=== PATIENT | male | born 1970 | race Caucasian/White ===

== ENCOUNTER → 2017-12-29 07:57 | Outpatient (CLI) | payer OTHER, SELFPAY ==
--- NOTE | 2017-12-29 | ASPOS_PTH ---
PATIENT: SARAH BETH YAÑEZ Jr. LOC: [facility] U#:[id number] AGE/SX: 54/M ROOM: RE12/29/[address]: Dr. Dakota Morelos MD : 1970 BED: DIS: SPEC #: [id number] RECD: 12/29/17 13:26 STATUS: MOHAN MARCIO #: [id number] JESUS MANUEL: 12/29/17 00:[address]: Dakota Morelos DEPT: CYTOLOGY RECD BY: Keon Pop ENTERED: 12/29/17 13:27 SP TYPE: ASP HERE OTHR DR: Dr. Ronald Jean Baptiste III, MD Tissues: Parotid gland, NOS Procedures: Pap Stain (control) Surgery Specimen Level IV Diff Quik Stain (control) Cell Block Cytology Other Fine Needle Asp on Site HEADER OPERATION: FNA right parotid mass PRE-OP DIAGNOSIS: Right parotid mass TISSUE SUBMITTED: FNA right parotid mass DIAGNOSIS CYTOLOGY Right parotid mass, FNA (smears and cell block): Pleomorphic adenoma. SJ:lavon 12/30/17 COMMENT The specimen is evaluated at the time of right parotid mass FNA by Dr. Mclaughlin. Immediate Evaluation = Pleomorphic adenoma. Clinical correlation and appropriate follow up are necessary. CYTOLOGY STUDY Slides are reviewed. CYTOLOGY GROSS Received is 0.2 ml of arellano fluid labeled with the patient's name, and designated right parotid mass. Two imprints and two paps are made from the submitted fluid and the rest is added to [employer]to[employer] for cell block preparation. Submitted for cytology study. / AM:lavon 12/29/17 TC:1 CPT: 45908, 12334, 10219, 99566
--- OUTSIDE RECORDS SUMMARY | 2017-12-29 08:27 | XMS RPT_ITS ---
:1970 Author Organization OH[facility] Care Team Providers Name Role Phone Cleveland Morelos Attending Unavailable Cleveland Morelos Referring Unavailable Cebul III, Ronald Primary Care Unavailable CEBUL III, RONALD A Attending Unavailable CEBUL III, RONALD Trujillo Referring Unavailable CEBUL III, RONALD Trujillo Attending Unavailable CEBUL III, RONALD Trujillo Referring Unavailable LOUANN SANCHEZ (TETRYL WRINGER OPERATOR) Attending Unavailable LOUANN SANCHEZ (TETRYL WRINGER OPERATOR) Referring Unavailable LOUANN SANCHEZ (TETRYL WRINGER OPERATOR) Referring Unavailable CEBUL III, RONALD Trujillo Referring Unavailable LOUANN SANCHEZ (TETRYL WRINGER OPERATOR) Attending Unavailable LOUANN SANCHEZ (TETRYL WRINGER OPERATOR) Referring Unavailable LOUANN SANCHEZ (TETRYL WRINGER OPERATOR) Referring Unavailable PROBLEMS PROBLEMS DATE TYPE CONDITION / CODE ATTENDING STATUS SOURCE 12/18/2017 Active Localized swelling, NA Active [facility] mass and lump, neck [place] / R22.1(ICD-10) Repository 12/01/2017 Active Encounter for Active [facility] screening for [place] infections with a Repository predominantly sexual mode of transmission / Z11.3(ICD-10) 08/19/2017 Active Other fatigue / NA Active [facility] R53.83(ICD-10) [place] Repository 04/29/2016 Active Hyperlipidemia, NA Active [facility] unspecified / [place] E78.5(ICD-10) Repository 10/10/2009 Active Essential (primary) NA Active [facility] hypertension / [place] I10(ICD-10) Repository 06/06/2017 Active Other long-term NA Active [facility] (current) drug [place] therapy / Repository Z79.899(ICD-10) PROCEDURES PROCEDURES No Procedure Records FoundRESULTS RESULTS PROGRESS Observed: 12/18/2017 Status: COMPLETED Source: [place] 4:05 PM [facility] REPOSITORY HNO ID: [id number]: Verenice Nuñez CtService: (none)Author Type: (none)Type: Progress NotesFiled: 12/18/2017 4:05 PMNote Text: Radiology Service Progress NotePATIENT NAME: Vinh Yañez JRMRN: [id number] OF SERVICE: December 18, 2017TIME: 4:05 PMPATIENT IDENTITY VERIFICATION COMPLETED USING TWO (2) METHODS: Patientconfirmed name verbally and Date of .PATIENT GENDER DATA: MalePATIENT RELEVANT IMPLANT DATA REVIEWED: Not ApplicableCONTRAST INDUCED NEPHROPATHY RISK FACTORS: Not applicableCREATININE:CreatinineDate Value Ref Range Dbprnh6311/29/2017 1.28 (H) 0.73 - 1.22 mg/dL Final08/19/2017 1.24 (H) 0.73 - 1.22 mg/dL Final06/06/2017 1.40 (H) 0.73 - 1.22 mg/dL Final eGFR-All Other RacesDate Value Ref Range Jukfqg9611/29/2017 60 . FinalComment:eGFR (Estimated GFR) Units of measure: mL/min/1.73 meters squaredeGFR is derived from the reexpressed MDRD Study equation using thefollowingparameters: serum creatinine, age, gender and race. The creatinine assayhasbeen calibrated to be traceable to IDMS.An eGFR <60 mL/min/1.73m2 for >3 months is consistent with chronic kidneydisease. Refer to KDOQI guidelines for clinical interpretation.In patients with unstable renal function, e.g. those with acute kidneyinjury,the eGFR may not accurately reflect actual GFR. eGFR- AmericanDate Value Ref Range Txkjhw7311/29/2017 >60 Final P.O.C.T. RESULTS: POC done: Yes, See Lab Tab December 18, 2017RADIOLOGIST NOTIFIED?: NoALLERGIES: Reviewed and unchangedCONTRAST ALLERGY: NO.PERIPHERAL IV ACCESS: Ambulatory: IV type: A peripheral IV was startedin the Left antecubital site with a Angio cath: 22 gauge., Siteassessment: Clean,Dry and Intact, Site disposition DiscontinuedRADIOLOGY DEPARTMENT: CT; Exam(s) Completed: NeckSIGNED BY: Verenice Nuñez CtDecember 18, 2017 4:[address] NECK SOFT TISSUE Observed: 12/18/2017 Status: F Source: [place] IVCON 9:28 AM [facility] REPOSITORY * * *Final Report* * *DATE OF EXAM: Dec 18 2017 9:28AM [facility] 0013 - CT NECK SOFT TISSUE W IVCON / REASON: Localized swelling, mass or lump of neck * * * * Physician Interpretation * * * * CT of the neck with contrast.HISTORY: Localized swelling mass or lump of neckTECHNIQUE: Routine neck with contrast.CT Contrast: Omnipaque 300CT Contrast Volume (ml): 100CT Contrast Route of Administration: IVCT Dose-Length Product (DLP): 815 mGycmCT Dose Reduction Employed: YesRadiation Shielding Employed: N/ACOMPARISON: NoneRESULT:1.4 cm mildly enhancing rounded masses in the tail of the right parotid gland. Differential considerations favor a primary parotid neoplasm over intraparotid adenopathy based on the morphology of the mass. Left parotid gland and submandibular glands are within normal limits. There is no adenopathy.Visible intracranial contents demonstrate remote ischemic changes in the left basal ganglia but otherwise appear to be within normal limits.The orbits, putty glazer spaces, parapharyngeal fat pads, retropharyngeal, and prevertebral soft tissue spaces are otherwise within normal limits. The thyroid gland has a homogeneous appearance. There are no destructive osseous lesions. Moderate spondylosis at C6-7 and C7-T1. 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.THERE IS NO ADENOPATHY.Swimmer: PSCKlaus Transcribe Date/Time: Dec 18 2017 9:46ADictated by : VIKTORIYA CARR MDThis examination was interpreted and the report reviewed and electronically signed by: VIKTORIYA CARR MD on Dec 18 2017 9:48AM [id number] PROGRESS Observed: 12/02/2017 Status: COMPLETED Source: [place] 1:20 PM [facility] REPOSITORY HNO ID: [id number]: Yessy JaquezachSerpipee: (none)Author Type: Medical AssistantType: Progress NotesFiled: 12/02/2017 1:26 PMNote Text:Spoke to Vinh, informed him of the date and time of CT scan.Patient informed and verbalized understanding.Yessy Reed MA PROGRESS Observed: 12/01/2017 Status: COMPLETED Source: [place] 4:24 PM [facility] REPOSITORY HNO ID: [id number]: Cecelia Call PsrService: (none)Author Type: (none)Type: Progress NotesFiled: 12/02/2017 1:17 PMNote Text:Patient is scheduled for 12/15/17 HEPATITIS REMOTE PANEL Collected: 12/01/2017 Status: F Source: [place] 9:06 AM [facility] REPOSITORY TYPE CODE TESTS RESULT OUT OF REFERENCE UNITS RANGE LAB AHBCOT Negative Hep B Core Negative Ab,Total LAB AHCV Negative Hepatitis C Negative Ab IA LAB HBSAGR Negative HBsAg Negative LAB AHBSAG Negative HepB Negative Surface Ab,Qual Result Comment: NEGATIVE Performed By: #### HREMOP, HIV12C, SYPHGX #### [facility] [address] [place], [place] [address] HIV 12 COMBO (AG/AB) Collected: 12/01/2017 Status: F Source: [place] 9:06 AM [facility] REPOSITORY TYPE CODE TESTS RESULT OUT OF REFERENCE UNITS RANGE LAB HVAGAB Non Reactive HIV Non 12 Ag/Ab Reactive Result Comment: (NOTE) HIV Information: [place] Rev. Code 3701.243(E): This information has been disclosed to you from confidential records protected from disclosure by state law. You shall make no further disclosure of this information without the specific, written, and informed release of the individual to whom it pertains, or as otherwise permitted by state law. A general authorization for the release of medical or other information is not sufficient for the purpose of the release of HIV test results or diagnoses. Performed By: #### HREMOP, HIV12C, SYPHGX #### [facility] [address] [place], [place] [address] SYPHILIS IGG WITH Collected: 12/01/2017 Status: F Source: [facility] 9:06 AM [facility] REPOSITORY TYPE CODE TESTS RESULT OUT OF REFERENCE UNITS RANGE LAB SYPHQL Nonreactive Nonreactive Syphilis IgG, Qual Result Comment: No serological evidence of infection with T. pallidum. LAB SYPHLG AI Syphilis IgG <0.2 Result Comment: Antibody index is interpreted as follows: Non reactive SPECIMENS <=0.8 Weak reactive SPECIMENS 0.9 to 5.9 Reactive SPECIMENS >=6.0 Performed By: #### HREMOP, HIV12C, SYPHGX #### [facility] [address] [place], [place] [address] PROGRESS Observed: 12/01/2017 Status: COMPLETED Source: [place] 7:52 AM [facility] REPOSITORY HNO ID: [id number]: Louann Howard (Chief Sales Officer) Ozzy: (none)Author Type: Nurse PractitionerType: Progress NotesFiled: 12/01/2017 8:48 AMNote Text:Chief ComplaintPatient presents with:Mass: patient states has right side of neckHPIPaul Cassandra Yañez JR is a 47 year old male who presents here today forAbove Complaints. F/U htn, lab review and mass on neck.Mass on right side of neck. Was noted at 08/19/17 OV, this was addressed,CT neck soft tissue was scheduled for 08/27/17 and patient no showed forthat. At an outreach telephone encounter, the patient noted mass stillpresent. He was reminded the CT scan previously ordered is still valid andhe agrees to have this done. Will schedule at end of OV today. Reports notpainful, not bothersome, does not feel it has grown any since last OV inJune.HTN: Mr. Yañez indicates that he is feeling well and denies anysymptoms referable to elevated blood pressure. Specifically deniesheadache, chest pain, palpitations, dyspnea and peripheral edema. Patientadmits to having side effects of fatigue. He stopped taking one of thetablets of Prinzide and never started Amlodipine, and no showed f/u apt torecheck BP. Sx of fatigue improved. He does not check BP's generally.Vinh gets minimal exercise. He watches his diet for sodium, low fat andlow cholesterol generally not very much.Last 3 Encounter BP Readings: Date: BP: 12/01/2017 142/112 08/19/2017 150/110 06/21/2017 150/99[Average (from Extended Vitals)[Hyperlipidemia. Mr. Yañez reports doing well on current therapy ofnothing. Admits eats what is available. Lives alone, does own cookingalong with fast food are about equal Denies regular exercise. He admitsroom for improvement.His most recent lipid panels are:Cholesterol, Total (mg/dL)Date Value11/29/2017 4612306/06/2017 214 HDL Cholesterol (mg/dL)Date Value11/29/2017 49006/06/2017 45 LDL Cholesterol (mg/dL)Date Value11/29/2017 5712506/06/2017 153 Triglyceride (mg/dL)Date Value11/29/2017 98006/06/2017 82 Also would like screened for HIV. Denies any sx, specifically weightloss, fever, night sweats. He denies any risks. Would just like to knowmy status.Component Latest Ref Rng AND Units 11/29/2017Glucose 74 - 99 mg/dL 89BUN 9 - 24 mg/dL 19Creatinine 0.73 - 1.22 mg/dL 1.28 (H)Sodium 136 - 144 mmol/L 141Potassium 3.7 - 5.1 mmol/L 4.0Chloride 97 - 105 mmol/L 101CO2 22 - 30 mmol/L 28Anion Gap 9 - 18 mmol/L 12Calcium 8.5 - 10.2 mg/dL 9.2eGFR- >60eGFR-All Other Races . 60Cholesterol, Total <200 mg/dL 253 (H)Triglyceride <150 mg/dL 98HDL Cholesterol >39 mg/dL 49LDL Cholesterol <100 mg/dL 184 (H)Non HDL Cholesterol <130 mg/dL 204 (H)Fasting Time hrs 14VLDL Cholesterol <30 mg/dL 20TC:HDL Ratio <5.10 5.16 (H)LDL:HDL Ratio <2.54 3.76 (H)Past medical history, appointments, medications, allergies reviewed.Previous Medical HistoryPAST MEDICAL HISTORYDiagnosis Date- Essential hypertension, benign 10/10/2009- Generalized anxiety disorder- Inguinal hernia unilateral 07/30/2010Previous Surgical HistoryNo past surgical history on file.Family HistoryFAMILY HISTORYProblem Relation Age of Onset- None Mother- Psychiatry Father chronic anxiety- Diabetes Maternal Grandfather- other (alcoholism) Brother- None Brother- None BrotherPatient AllergiesALLERGIESAllergen Reactions- Bees HivesCurrent MedicationsCurrent Outpatient Prescriptions on File Prior to Visit:lisinopril-hydrochlorothiazide (PRINZIDE,ZESTORETIC) 20-12.5 mg per tabletTake 2 tablets by mouth once daily.MULTIVITAMIN ORAL Take 1 tablet by mouth once daily.DULoxetine (CYMBALTA) 30 mg capsule Take 1 capsule by mouth once daily.sildenafil (VIAGRA) 50 mg tablet Take 1 tablet by mouth as needed.amLODIPine (NORVASC) 5 mg tablet Take 1 tablet by mouth once daily.No current facility-administered medications on file prior to visit.Social HistorySocial History Marital status: Spouse name: Years of education: Number of children:Social History Main Topics Smoking status: Never Smoker Smokeless tobacco: Never Used Alcohol use: Yes Comment: 3 beers per week Drug use: NoReview of SymptomsREVIEW OF SYSTEMSGENERAL: No weight loss, malaise or feversHEENT: Negative for frequent or significant headaches, No changes inhearing or vision, no nose bleeds or other nasal problemsNECK: See HPIRESPIRATORY: Negative for cough, hemoptysis, wheezing, COPD, dyspnea orshortness of breathCARDIOVASCULAR: Negative for chest pain, leg swelling, hypertension, CHFor palpitationsGU: Positive for nocturia >1 1-2 times/night. Mild stream.EXAM:BP 150/100 Pulse 60 Temp 36.6 ?C (97.9 ?F) (Tympanic) Resp 16 Wt 87.5 kg (193 lb) BMI 27.69 kg/m?General Appearance: Well appearing, alert, in no acute distress,well-hydrated, well nourished..Oropharynx: Lips, mucosa, and tongue normal, teeth and gums normal,oropharynx normal.Neck: Supple, no adenopathy; thyroid symmetric, normal size, no bruits,Positive findings: Positive findings: 2 cm mobile, firm mass right lowerjaw line, tonsillar node area, difficult to delineate if 2 separatemasses, unchanged from 08/19/17 examLungs: Lungs clear to auscultation. No wheezing, rhonchi, rales.Heart: RRR without murmur, gallop, or rubs. No ectopy.Abdomen: Normal abdominal exam, Abdomen soft, non-tender. Bowel soundsnormal. No masses, organomegaly.Extremities: No deformities, edema, skin discoloration, clubbing orcyanosis. Good capillary refill. .Health Maintenance ListBP CONTROLLED (<130/80) due on 1986INFLUENZA(1) due on 11/08/2017ANNUAL PCP TEAM CHRONIC DISEASE VISIT due on 08/19/2018DTAP,TDAP,TD(2 - Td) due on 09/15/2019DIABETES SCREEN due on 1LIPID SCREEN due on 3ASSESSMENT/PLAN:1. Essential hypertension, benign - ICD9: 401.1, ICD10: I10 (primarydiagnosis)- poor control- Add amlodipine (Norvasc)- Encouraged dietary sodium restriction/DASH diet- Recommended regular aerobic exercise.- Recommend home blood pressure monitoring, to bring results in on nextvisit- Discussed need and benefit for weight loss.- Recheck in 3 weeks nurse visit, sooner should new symptoms or problemsarise. Then f/u in office in 3 months- Goal of BP <130/80- AMLODIPINE 5 MG TABLET2. Hyperlipidemia LDL goal <130 - ICD9: 272.4, ICD10: E78.5- suboptimal control- Encouraged following a low fat, low cholesterol diet.- Check fasting lipid panel in 12 weeks.- Follow up in 12 weeks.- If remains elevated then plan to start statin. He is given handout onlow cholesterol diet. CVD lifetime risk assessed.3. Neck mass - ICD9: 784.2, ICD10: R22.1Ct soft tissue neck previously ordered, Will re- schedule4. Routine screening for STI (sexually transmitted infection) - ICD9:V74.5, ICD10: Z11.3- Lengthy discussion regarding STI's and screening. He wishes to proceedwith labs today.- HIV 1,2 COMBO (AG/AB)- HEP REMOTE PANEL BL- SYPHILIS IGG WITH CONF5. Generalized anxiety disorder - ICD9: 300.02, ICD10: F41.1- Stable, He did not switch to Cybalta from Effexor. Will keep withEffexor for now, titrate BP meds. If unable to get BP under better controlthen will need to consider Effexor as potential contributing factor. Thepatient indicates understanding of these issues and agrees with the plan.Louann Sanchez MSN CHARGING CAR OPERATOR.SIGNAL INTELLIGENCE/ELECTRONIC WARFARE CNOV Observed: 12/01/2017 Status: COMPLETED Source: [place] 7:40 AM [facility] REPOSITORY Office Visit (FAMPWS) VINH YAÑEZ JR ([id number]) 1970 MDate Time Provider Department12/01/17 7:40 AM LOUANN SANCHEZ (TETRYL WRINGER OPERATOR) FAMPWS During your visit today, we recorded the following information about you: Temperature Pulse Respiration Blood pressure 97.9 degrees 60/minute 16/minute 150/100 Weight 87.5 kgLouann Sanchez, MSN CHARGING CAR OPERATOR.SIGNAL INTELLIGENCE/ELECTRONIC WARFARE 12/01/2017 8:48 AM SignedChief ComplaintPatient presents with:Mass: patient states has right side of neckHPIPatressa Yañez JR is a 47 year old male who presents here today for AboveComplaints. F/U htn, lab review and mass on neck.Mass on right side of neck. Was noted at 08/19/17 OV, this was addressed, CTneck soft tissue was scheduled for 08/27/17 and patient no showed for that. Atan outreach telephone encounter, the patient noted mass still present. He wasreminded the CT scan previously ordered is still valid and he agrees to havethis done. Will schedule at end of OV today. Reports not painful, notbothersome, does not feel it has grown any since last OV in August.HTN: Mr. Yañez indicates that he is feeling well and denies any symptomsreferable to elevated blood pressure. Specifically denies headache, chest pain,palpitations, dyspnea and peripheral edema. Patient admits to having sideeffects of fatigue. He stopped taking one of the tablets of Prinzide and neverstarted Amlodipine, and no showed f/u apt to recheck BP. Sx of fatigueimproved. He does not check BP's generally. Vinh gets minimal exercise. Hewatches his diet for sodium, low fat and low cholesterol generally not verymuch.Last 3 Encounter BP Readings: Date: BP: 12/01/2017 142/112 08/19/2017 150/110 06/21/2017 150/99[Average (from Extended Vitals)[Hyperlipidemia. Mr. Yañez reports doing well on current therapy ofnothing. Admits eats what is available. Lives alone, does own cooking alongwith fast food are about equal Denies regular exercise. He admits room forimprovement.His most recent lipid panels are:Cholesterol, Total (mg/dL)Date Value11/29/2017 1722206/06/2017 214 HDL Cholesterol (mg/dL)Date Value11/29/2017 49006/06/2017 45 LDL Cholesterol (mg/dL)Date Value11/29/2017 8904706/06/2017 153 Triglyceride (mg/dL)Date Value11/29/2017 98006/06/2017 82 Also would like screened for HIV. Denies any sx, specifically weight loss,fever, night sweats. He denies any risks. Would just like to know my status.Component Latest Ref Rng AND Units 11/29/2017Glucose 74 - 99 mg/dL 89BUN 9 - 24 mg/dL 19Creatinine 0.73 - 1.22 mg/dL 1.28 (H)Sodium 136 - 144 mmol/L 141Potassium 3.7 - 5.1 mmol/L 4.0Chloride 97 - 105 mmol/L 101CO2 22 - 30 mmol/L 28Anion Gap 9 - 18 mmol/L 12Calcium 8.5 - 10.2 mg/dL 9.2eGFR- >60eGFR-All Other Races . 60Cholesterol, Total <200 mg/dL 253 (H)Triglyceride <150 mg/dL 98HDL Cholesterol >39 mg/dL 49LDL Cholesterol <100 mg/dL 184 (H)Non HDL Cholesterol <130 mg/dL 204 (H)Fasting Time hrs 14VLDL Cholesterol <30 mg/dL 20TC:HDL Ratio <5.10 5.16 (H)LDL:HDL Ratio <2.54 3.76 (H)Past medical history, appointments, medications, allergies reviewed.Previous Medical HistoryPAST MEDICAL HISTORYDiagnosis Date- Essential hypertension, benign 10/10/2009- Generalized anxiety disorder- Inguinal hernia unilateral 07/30/2010Previous Surgical HistoryNo past surgical history on file.Family HistoryFAMILY HISTORYProblem Relation Age of Onset- None Mother- Psychiatry Father chronic anxiety- Diabetes Maternal Grandfather- other (alcoholism) Brother- None Brother- None BrotherPatient AllergiesALLERGIESAllergen Reactions- Bees HivesCurrent MedicationsCurrent Outpatient Prescriptions on File Prior to Visit:lisinopril-hydrochlorothiazide (PRINZIDE,ZESTORETIC) 20-12.5 mg per tablet Take2 tablets by mouth once daily.MULTIVITAMIN ORAL Take 1 tablet by mouth once daily.DULoxetine (CYMBALTA) 30 mg capsule Take 1 capsule by mouth once daily.sildenafil (VIAGRA) 50 mg tablet Take 1 tablet by mouth as needed.amLODIPine (NORVASC) 5 mg tablet Take 1 tablet by mouth once daily.No current facility-administered medications on file prior to visit.Social HistorySocial History Marital status: Spouse name: Years of education: Number of children:Social History Main Topics Smoking status: Never Smoker Smokeless tobacco: Never Used Alcohol use: Yes Comment: 3 beers per week Drug use: NoReview of SymptomsREVIEW OF SYSTEMSGENERAL: No weight loss, malaise or feversHEENT: Negative for frequent or significant headaches, No changes in hearing orvision, no nose bleeds or other nasal problemsNECK: See HPIRESPIRATORY: Negative for cough, hemoptysis, wheezing, COPD, dyspnea orshortness of breathCARDIOVASCULAR: Negative for chest pain, leg swelling, hypertension, CHF orpalpitationsGU: Positive for nocturia >1 1-2 times/night. Mild stream.EXAM:BP 150/100 Pulse 60 Temp 36.6 ?C (97.9 ?F) (Tympanic) Resp 16 Wt87.5 kg (193 lb) BMI 27.69 kg/m?General Appearance: Well appearing, alert, in no acute distress, well-hydrated,well nourished..Oropharynx: Lips, mucosa, and tongue normal, teeth and gums normal, oropharynxnormal.Neck: Supple, no adenopathy; thyroid symmetric, normal size, no bruits,Positive findings: Positive findings: 2 cm mobile, firm mass right lower jawline, tonsillar node area, difficult to delineate if 2 separate masses,unchanged from 08/19/17 examLungs: Lungs clear to auscultation. No wheezing, rhonchi, rales.Heart: RRR without murmur, gallop, or rubs. No ectopy.Abdomen: Normal abdominal exam, Abdomen soft, non-tender. Bowel sounds normal.No masses, organomegaly.Extremities: No deformities, edema, skin discoloration, clubbing or cyanosis.Good capillary refill. .Health Maintenance ListBP CONTROLLED (<130/80) due on 1986INFLUENZA(1) due on 11/08/2017ANNUAL PCP TEAM CHRONIC DISEASE VISIT due on 08/19/2018DTAP,TDAP,TD(2 - Td) due on 09/15/2019DIABETES SCREEN due on 1LIPID SCREEN due on 3ASSESSMENT/PLAN:1. Essential hypertension, benign - ICD9: 401.1, ICD10: I10 (primary diagnosis)- poor control- Add amlodipine (Norvasc)- Encouraged dietary sodium restriction/DASH diet- Recommended regular aerobic exercise.- Recommend home blood pressure monitoring, to bring results in on next visit- Discussed need and benefit for weight loss.- Recheck in 3 weeks nurse visit, sooner should new symptoms or problemsarise. Then f/u in office in 3 months- Goal of BP <130/80- AMLODIPINE 5 MG TABLET2. Hyperlipidemia LDL goal <130 - ICD9: 272.4, ICD10: E78.5- suboptimal control- Encouraged following a low fat, low cholesterol diet.- Check fasting lipid panel in 12 weeks.- Follow up in 12 weeks.- If remains elevated then plan to start statin. He is given handout on lowcholesterol diet. CVD lifetime risk assessed.3. Neck mass - ICD9: 784.2, ICD10: R22.1Ct soft tissue neck previously ordered, Will re- schedule4. Routine screening for STI (sexually transmitted infection) - ICD9: V74.5,ICD10: Z11.3- Lengthy discussion regarding STI's and screening. He wishes to proceed withlabs today.- HIV 1,2 COMBO (AG/AB)- HEP REMOTE PANEL BL- SYPHILIS IGG WITH CONF5. Generalized anxiety disorder - ICD9: 300.02, ICD10: F41.1- Stable, He did not switch to Cybalta from Effexor. Will keep with Effexor fornow, titrate BP meds. If unable to get BP under better control then will needto consider Effexor as potential contributing factor. The patient indicatesunderstanding of these issues and agrees with the plan.Louann Sanchez, MSN CHARGING CAR OPERATOR.Serg Sanchez, MSN CHARGING CAR OPERATOR.NEVAEH 12/01/2017 8:18 AM Signed1. Begin Amlodipine once a day for BP, Nurse visit in 3 weeks to recheck BP.2. Schedule Ct neckReferring Provider: SELF [200]Allergies As of Date: 12/01/2017 Noted Allergy ReactionBEES 06/06/2017 4 - HivesDate Reviewed: 08/27/2017Reviewed by: Verenice Nuñez Ct - Fully AssessedReason for Visit: Mass [64] Cmt: patient states has right side of neckPrimary Visit Diagnosis:Essential hypertension, benign [I10] Other Visit Diagnoses:Hyperlipidemia LDL goal <130 [E78.5] Neck mass [R22.1] Routine screening for STI (sexually transmitted infection) [Z11.3] Generalized anxiety disorder [F41.1]Order(s):amLODIPine (NORVASC) 5 mg tabletTake 1 tablet by mouth once daily.Disp: 30 tabletRfl: 11 lisinopril-hydrochlorothiazide (PRINZIDE,ZESTORETIC) 20-12.5 mg per tabletTake 1 tablet by mouth once daily.Disp: 60 tabletRfl: 11 HIV 1,2 COMBO (AG/AB) [SQHIV12] Order #: [id number] FUTURE HEP REMOTE PANEL BL [SQHREMOP] Order #: [id number] FUTURE SYPHILIS IGG WITH CONF [SQSYPHGX] Order #: [id number] FUTURE LIPID PANEL BASIC [SQLIPB] Order #: [id number] FUTUREPrescriptions as of 12/01/2017 Sig: VENLAFAXINE ER 75 MG CAPSULE,* Take 75 mg by mouth once ro* LISINOPRIL 20 MG-HYDROCHLOROT* Take 1 tablet by mouth once d* * MULTIVITAMIN ORAL Take 1 tablet by mouth once d* AMLODIPINE 5 MG TABLET Take 1 tablet by mouth once d* SILDENAFIL 50 MG TABLET Take 1 tablet by mouth as nee*Problem List As Of Date 12/01/2017 Noted Resolved GENERALIZED ANXIETY DIS [F41.1] INVALID FOR* ESOPHAGEAL REFLUX [K21.9] INVALID FOR* Eczema, Dyshidrotic [L30.1] INVALID FOR* Essential Hypertension, Benign [I10] INVALID FOR* Inguinal ring laxity [K40.90] INVALID FOR*06/06/2017 Inguinal hernia, left [K40.90] INVALID FOR* Inguinal hernia [K40.90] INVALID FOR*06/06/2017 Adjustment disorder with mixed anxiety and depr*INVALID FOR* Hyperlipidemia LDL goal <130 [E78.5] INVALID FOR* Erectile dysfunction [N52.9] INVALID FOR* Other instructions from your clinician: 1. Begin Amlodipine once a day for BP, Nurse visit in 3 weeks to recheck BP. 2. Schedule Ct neckPrescriptions ordered this encounter Disp Refills Start End AMLODIPINE 5 MG TABLET 30 t* 11 12/01/2017 Route: ORAL Sig: Take 1 tablet by mouth once daily. LISINOPRIL 20 MG-HYDROCHLOROTHIAZIDE* 60 t* 11 12/01/2017 Class: Med Update Route: ORAL Sig: Take 1 tablet by mouth once daily.Medications Discontinued During This Encounter DULoxetine (CYMBALTA) 30 mg capsule 30 c* 5 08/19/2017 12/01/2017 Route: ORAL Sig: Take 1 capsule by mouth once daily. Disc: Discontinued by Patient amLODIPine (NORVASC) 5 mg tablet 30 t* 11 06/21/2017 12/01/2017 Route: ORAL Sig: Take 1 tablet by mouth once daily. Disc: Reason for discontinue is not on file. lisinopril-hydrochlorothiazide (PRIN* 60 t* 11 06/06/2017 12/01/2017 Route: ORAL Sig: Take 2 tablets by mouth once daily. Disc: Reason for discontinue is not on file.Disposition: Return in about 3 months (around 03/02/2018).Follow-up and Disposition History RecordedRon Hernandez [id number]: [phone] FOR LOW CHOLESTEROL, LOW TRIGLYCERIDE DIETSFOODS TO USEMEATS/FISH - Choose lean meats (chicken, turkey, veal, and nonfatty cuts ofbeef with excess fat trimmed; one serving = 3 oz. of cooked meat). Also,fresh or frozen fish, canned fish packed in water, and shellfish (lobster,crab, shrimp, oysters). Limit use to no more than one serving of one ofthese per week. Shellfish are high in cholesterol but low in saturated fatand should be used sparingly. Meats and fish should be broiled (chowdhury or oven)or baked on a rack.EGGS - Egg substitutes and egg whites (use freely). Egg yolks (limit two perweek).FRUITS - Eat three servings of fresh fruit per day (1 serving = 1/2 cup). Besure to have at least one citrus fruit daily. Frozen or canned fruit with nosugar or syrup added may be used.VEGETABLES - Most vegetables are not limited (see Foods to Avoid). One darkgreen (string beans, escarole) or one deep yellow (squash) vegetable isrecommended daily. Cauliflower, broccoli, and celery, as well as potatoskins, are recommended for their fiber content (fiber is associated withcholesterol reduction). It is preferable to steam vegetables, but they maybe boiled, strained, or braised with polyunsaturated vegetable oil (seebelow).BEANS - Dried peas or beans (1 serving = 1/2 cup) may be used as a breadsubstitute.NUTS - Almonds, walnuts, and peanuts may be used sparingly (1 serving = 1tablespoon). Use pumpkin, sesame, or sunflower seeds.BREADS/GRAINS - One roll or one slice of whole grain or enriched bread may beused, or three soda crackers or four pieces of kevin toast as a substitute.Spaghetti, rice or noodles (1/2 cup) or 1/2 large ear of corn may be used asa bread substitute. In preparing these foods, do not use butter orshortening; use soft margarine. Also use egg and sugar substitutes. Choosehigh fiber grains, such as oats and whole wheat.CEREALS - Use 1/2 cup of hot cereal or 1/4 cup of cold cereal per day. Add asugar substitute if desired, with 99% fat-free or skim milk.MILK PRODUCTS - Always use 99% fat-free or skim milk, dairy products such aslow-fat cheeses (hummel's, uncreamed diet cottage), low-fat yogurt, andpowdered skim milk.FATS/OILS - Use soft (not stick) margarine, vegetable oils that are high inpolyunsaturated fats (such as safflower, sunflower, soybean, corn, andcottonseed). Always refrigerate meat drippings to harden the fat and removeit before preparing gravies.DESSERTS/SNACKS - Limit to two servings per day; substitute each serving fora bread/cereal serving; ice milk or water sherbet (1/4 cup); unflavoredgelatin or gelatin flavored with sugar substitute (1/2 cup); pudding preparedwith skim milk (1/2 cup); egg white souffles; unbuttered popcorn (1 1/2cups). Substitute carob for chocolate.BEVERAGES - Fresh fruit juices (limit to 4 oz. per day); black coffee; plainor herbal teas; soft drinks with sugar substitutes; club soda, preferablysalt-free; cocoa made with skim milk or nonfat dried milk and water (sugarsubstitute added, if desired); clear broth. Alcohol - limit to two servingsper day (see Foods to Avoid).MISCELLANEOUS - You may use the following freely: vinegar; spices; herbs;nonfat bouillon; mustard; Worcestershire sauce; soy sauce; flavoring essence.FOODS TO AVOIDMEATS/FISH - Marbled beef, pork, randolph, sausage and other pork products;fatty fowl (duck, goose); skin and fat of turkey and chicken; processedmeats; luncheon meats (salami, bologna); frankfurters and fast foodhambergers (they are loaded with fat); organ meats (kidneys, liver); cannedfish packed in oil.EGGS - Limit egg yolks to two per week.FRUITS - Coconuts (rich in saturated fat)VEGETABLES - Avoid avocados. Starchy vegetables (potatoes, corn phan beans,dried peas, beans) may be used only if they are substitutes for a serving ofbread or cereal. (Baked potato skin, however, is desirable for its fibercontent).BEANS - Commercial baked beans with sugar and/or pork added.NUTS - Avoid nuts. Limit peanuts and walnuts to one tablespoonful per day.BREADS/GRAINS - Any baked goods with shortening and/or sugar. Commercialmixes with dried eggs and whole milk. Avoid sweet rolls, doughnuts,breakfast pastries (Belarusian), and sweetened packaged cereals (the added sugarconverts readily to triglycerides).MILK PRODUCTS - Whole milk and whole-milk packaged goods; cream; ice cream;whole-milk puddings, yogurt, or cheeses; nondairy cream substitutes.FATS/OILS - Butter, lard, animal fats, randolph drippings, gravies, creamsauces, as well as palm and coconut oils. All these are high in saturatedfats. Examine labels on cholesterol free products for hydrogenated fats.(These are oils that have been hardened into solids and in the process havebecome saturated.)DESSERTS/SNACKS - Fried snack foods like potato chips; chocolate; candies ingeneral; jams, jellies, syrups; whole-milk puddings; ice cream and milksherberts; hydrogenatd peanut butter.BEVERAGES - Sugared fruit juices and soft drinks; cocoa made with whole milkand/or sugar. When using alcohol (1 oz. liquor, 5 oz. beer, or 2 1/2 oz. drytable wine per serving), one serving must be substituted for one bread orcereal serving (limit two servings of alcohol per day).SPECIAL NOTES:1. Remember that even nonlimited foods should be used in moderation.2. While on a cholesterol-lowering diet, be sure to avoid animal fats andmarbled meats.3. While on a triglyceride-lowering diet, be sure to avoid sweets and tocontrol the amount of carbohydrates you eat (starchy foods such as flower,bread, or potatoes).4. Buy a good low-fat cookbook, such as the one published by the AmericanHeart Association.5. Consult your physician if you have any questions. Status:Closed by LOUANN SANCHEZ SIGNAL INTELLIGENCE[employer] on 12/01/17 BASIC METABOLIC PANL Collected: 11/29/2017 Status: F Source: [place] 11:47 AM [facility] REPOSITORY TYPE CODE TESTS RESULT OUT OF REFERENCE UNITS RANGE LAB GLU 74-99 mg/dL Glucose 89 Result Comment: The [place] Diabetes Association (ADA) provides guidance for cutoff values for fasting glucose and r andom glucose. The ADA defines fasting as no caloric intake for at least 8 hours. Fasting plasma glucose results between 100 to 125 mg/dL indicate increased risk for diabetes (prediabetes). Fasting plasma glucose results greater than or equal to 126 mg/dL meet the criteria for diagnosis of diabetes. In the absence of unequivocal hyperglycemia, results should be confirmed by repeat testing. In a patient with classic symptoms of hyperglycemia or hyperglycemic crisis, random plasma glucose results greater than or equal to 200 mg/dL meet the criteria for diagnosis of diabetes. Reference: Standards of Medical Care in Diabetes 2016, [place] Diabetes Association. Diabetes Care. 2016.39(Suppl 1). LAB BUN 9-24 mg/dL BUN 19 LAB CRET High 0.73-1.22 mg/dL Creatinine 1.28 LAB NA 136-144 mmol/L Sodium 141 LAB K 3.7-5.1 mmol/L Potassium 4.0 LAB CL 97-105 mmol/L Chloride 101 LAB CO2 22-30 mmol/L CO2 28 LAB AGAP 9-18 mmol/L Anion Gap 12 LAB CA 8.5-10.2 mg/dL Calcium, Total 9.2 LAB GFRAA eGFR- Amer. >60 LAB GFRNAA . eGFR-All Other Races 60 Result Comment: eGFR (Estimated GFR) Units of measure: mL/min/1.73 meters squared eGFR is derived from the reexpressed MDRD Study equation using the following parameters: serum creatinine, age, gender and race. The creatinine assay has been calibrated to be traceable to IDMS. An eGFR <60 mL/min/1.73m2 for >3 months is consistent with chronic kidney disease. Refer to KDOQI guidelines for clinical interpretation. In patients with unstable renal function, e.g. those with acute kidney injury, the eGFR may not accurately reflect actual GFR. Performed By: #### BMP, LIPB #### [facility] [address] [place], [place] [address] LIPID PANEL, BASIC Collected: 11/29/2017 Status: F Source: [place] 11:47 AM [facility] REPOSITORY TYPE CODE TESTS RESULT OUT OF REFERENCE UNITS RANGE LAB CHOL High <200 mg/dL Cholesterol 253 Result Comment: <200 mg/dL, Desirable 200-239 mg/dL, Borderline high >239 mg/dL, High LAB TRIGLY <150 mg/dL Triglyceride 98 Result Comment: <150 mg/dL, Normal 150-199 mg/dL, Borderline high 200-499 mg/dL, High >499 mg/dL, Very high LAB HDL >39 mg/dL HDL-Cholesterol 49 Result Comment: 40-59 mg/dL, Acceptable >59 mg/dL, High: Negative risk factor for coronary heart disease <40 mg/dL, Low: Positive risk factor for coronary heart disease LAB LDL High <100 mg/dL LDL-Cholesterol 184 Result Comment: <100 mg/dL, Optimal 100-129 mg/dL, Near optimal/above optimal 130-159 mg/dL, Borderline high 160-189 mg/dL, High >189 mg/dL, Very high Secondary prevention optimal LDL Cholesterol levels are recommended to be < 70 mg/dL LAB NONHDL High <130 mg/dL Non HDL Cholesterol 204 Result Comment: <130 mg/dL, Optimal 130-159 mg/dL, Near optimal/above optimal 160-189 mg/dL, Borderline high 190-219 mg/dL, High >219 mg/dL, Very high Secondary prevention optimal non HDL Cholesterol levels are recommended to be < 100 mg/dL LAB FT hrs Fasting Time 14 LAB VLDL <30 mg/dL VLDL Cholesterol 20 LAB TCHDL High <5.10 TC:HDL Ratio 5.16 LAB LDLHDL High <2.54 LDL:HDL Ratio 3.76 Result Comment: Reference: 1. National Cholesterol Education Program ATP III Guideline At-A-Glance Quick Desk Reference: National Heart, Lung, and Blood [place]. National Institutes of Health. 2001: NIH Publication No. 01-3305. 2. An International Atherosclerosis Society position paper: global recommendations for the management of dyslipidemia: executive summary, Atherosclerosis. 2014: 232(2):410-413. Performed By: #### BMP, LIPB #### [facility] [address] [place], [place] [address] PROGRESS Observed: 11/28/2017 Status: COMPLETED Source: [place] 11:44 AM [facility] REPOSITORY HNO ID: [id number]: Yessy Valentin: (none)Author Type: Medical AssistantType: Progress NotesFiled: 12/02/2017 1:17 PMNote Text:Please reschedule patient's CT scan.Yessy Reed MA PROGRESS Observed: 11/28/2017 Status: COMPLETED Source: [place] 11:23 AM [facility] REPOSITORY HNO ID: [id number]: Yessy Valentin: (none)Author Type: Medical AssistantType: Progress NotesFiled: 12/02/2017 1:17 PMNote Text:The patient has been identified by name and date of : MIKE have scheduled the patient for an appointment on 12/01/2017.The patient will report to the lab prior to the visit.Patient needs to get CT Scan of his neck. Spoke to Louann Sanchez regardingthe lump in his neck.PHNJ Documentation 11/28/2017Opts out of Population Health NoAppointments Scheduled Scheduled CP ApptBP > 139/89 Other ApptAppt Date 12/01/2017Yessy Reed MA PROGRESS Observed: 11/24/2017 Status: COMPLETED Source: [place] 2:11 PM [facility] REPOSITORY HNO ID: [id number]: Yessy Valentin: (none)Author Type: Medical AssistantType: Progress NotesFiled: 12/02/2017 1:17 PMNote Text: PHMA TEAMLET DOCUMENTATIONProvider Action/FYI:Patient needs appointmentPSR Action/FYI:Schedule follow up appointmentTeamlet has identified patient by name and date of .Team: Dr. Jet Jean Baptiste III, MD, LES Peace, Yessy Reed MA,Saad Macdonald LPN, Maureen Mohamud, MACHINES TECHNICIAN? Last Office Visit:09/05/2017? Next Office Visit: Visit date not found? Last BP/Labs:Blood Pressure:Last 3 Encounter BP Readings: Date: BP: 08/19/2017 150/110 06/21/2017 150/99[Average (from Extended Vitals)[ 06/06/2017 174/113Lipids:Cholesterol, Total (mg/dL)Date Value06/06/2017 9938704/08/2016 241 HDL Cholesterol (mg/dL)Date Value06/06/2017 45004/08/2016 49 LDL Cholesterol (mg/dL)Date Value06/06/2017 5763904/08/2016 180 Triglyceride (mg/dL)Date Value06/06/2017 8204/08/2016 62 HGB A1C:Lab ResultsComponent Value QpktIGB4N 5.7 06/06/2017HBA1C 5.8 04/08/2016TSH:TSH (uU/mL)Date Value08/19/2017 1.610 )Care Gap: HTN - Last BP NOT under 140/90Plan:? Confirm PCP / Status? Type of appointment needed: Follow up? Consultation Appointments: No patient outreach needed at this time?Labs, HM and Immunization:Yessy Reed MA CNPTOUTREACH Observed: 11/24/2017 Status: COMPLETED Source: [place] 12:00 AM [facility] REPOSITORY Patient Outreach (FAMPWS) VINH YAÑEZ JR ([id number]) 1970 MDate Time Provider Department11/24/17 YESSY REED) PAO During your visit today, we recorded the following information about you:Yessy Reed MA 12/02/2017 1:17 PM Signed PHMA TEAMLET DOCUMENTATIONProvider Action/FYI:Patient needs appointmentPSR Action/FYI:Schedule follow up appointmentTeamlet has identified patient by name and date of .Team: Dr. Jet Jean Baptiste III,, LES Peace, Yessy Reed MA,Saad Macdonald LPN, Maureen Mohamud, [facility]? Last Office Visit:09/05/2017? Next Office Visit: Visit date not found? Last BP/Labs:Blood Pressure:Last 3 Encounter BP Readings: Date: BP: 08/19/2017 150/110 06/21/2017 150/99[Average (from Extended Vitals)[ 06/06/2017 174/113Lipids:Cholesterol, Total (mg/dL)Date Value06/06/2017 3520504/08/2016 241 HDL Cholesterol (mg/dL)Date Value06/06/2017 45004/08/2016 49 LDL Cholesterol (mg/dL)Date Value06/06/2017 8942904/08/2016 180 Triglyceride (mg/dL)Date Value06/06/2017 8204/08/2016 62 HGB A1C:Lab ResultsComponent Value FoizOQL8F 5.7 06/06/2017HBA1C 5.8 04/08/2016TSH:TSH (uU/mL)Date Value08/19/2017 1.610 )Care Gap: HTN - Last BP NOT under 140/90Plan:? Confirm PCP / Status? Type of appointment needed: Follow up? Consultation Appointments: No patient outreach needed at this time?Labs, HM and Immunization:Kathya Parker MA 12/02/2017 1:17 PM SignedThe patient has been identified by name and date of : MIKE have scheduled the patient for an appointment on 12/01/2017.The patient will report to the lab prior to the visit.Patient needs to get CT Scan of his neck. Spoke to Louann Sanchez regarding thelump in his neck.PHNJ Documentation 11/28/2017Opts out of Population Health NoAppointments Scheduled Scheduled CP ApptBP > 139/89 Other ApptAppt Date 12/01/2017Kathya Parker MA 12/02/2017 1:17 PM SignedPlease reschedule patient's CT scan.Rafita Parker Psr 12/02/2017 1:17 PM SignedPatient is scheduled for 12/15/17Yessy Reed MA 12/02/2017 1:26 PM SignedSpoke to Vinh, informed him of the date and time of CT scan.Patient informed and verbalized understanding.Jose Eduardo Parker As of Date: 11/24/2017 Noted Allergy ReactionBEES 06/06/2017 4 - HivesDate Reviewed: 08/27/2017Reviewed by: Verenice Nuñez Ct - Fully AssessedReason for Visit: PHMA/Care Gap Outreach [[id number]]Prescriptions as of 11/24/2017 Sig:X DULOXETINE 30 MG CAPSULE,KATHLEEN* Take 1 capsule by mouth once * SILDENAFIL 50 MG TABLET Take 1 tablet by mouth as nee*X AMLODIPINE 5 MG TABLET Take 1 tablet by mouth once d*X LISINOPRIL 20 MG-HYDROCHLOROT* Take 2 tablets by mouth once * * MULTIVITAMIN ORAL Take 1 tablet by mouth once d*Problem List As Of Date 11/24/2017 Noted Resolved GENERALIZED ANXIETY DIS [F41.1] INVALID FOR* ESOPHAGEAL REFLUX [K21.9] INVALID FOR* Eczema, Dyshidrotic [L30.1] INVALID FOR* Essential Hypertension, Benign [I10] INVALID FOR* Inguinal ring laxity [K40.90] INVALID FOR*06/06/2017 Inguinal hernia, left [K40.90] INVALID FOR* Inguinal hernia [K40.90] INVALID FOR*06/06/2017 Adjustment disorder with mixed anxiety and depr*INVALID FOR* Hyperlipidemia LDL goal <130 [E78.5] INVALID FOR* Erectile dysfunction [N52.9] INVALID FOR* Status:Closed by YESSY REED on 12/02/17 URINALYSIS WITH Collected: 08/19/2017 Status: F Source: [facility] 12:42 PM [facility] REPOSITORY TYPE CODE TESTS RESULT OUT OF REFERENCE UNITS RANGE LAB UCOL Yellow Color Yellow LAB [facility] Clear Clarity Clear LAB UGLUC Negative mg/dL Glucose, Urine Negative LAB UBIL Negative Bilirubin, Urine Negative LAB UKET Negative Ketones, Urine Negative LAB USPG 1.005-1.030 Specific 1.021 [place], Ur LAB UHGB Negative Hemoglobin/Blood, Negative Ur LAB UPH 4.5-8.0 pH 6.0 LAB UPROT Negative mg/dL Protein, Urine Negative LAB UUROB Normal Urobilinogen Normal LAB UNITR Negative Nitrites Negative LAB ULKEST Negative Leukest Negative LAB UCOM Comments SEE COMMENT Result Comment: N/A LAB UMCOM Urine [place] SEE COMMENT Comment Result Comment: N/A LAB UWBC 0-5 /HPF WBC 0-5 LAB URBC 0-3 /HPF RBC 0-3 Performed By: #### UAWMIC #### [facility] [address] [place], [place] [address] CBC AND DIFFERENTIAL Collected: 08/19/2017 Status: F Source: [place] 11:45 AM [facility] REPOSITORY TYPE CODE TESTS RESULT OUT OF REFERENCE UNITS RANGE LAB WBC 3.70-11.00 k/uL WBC 4.74 LAB RBC 4.20-6.00 m/uL RBC 4.66 LAB HGB 13.0-17.0 g/dL Hemoglobin 14.1 LAB HCT 39.0-51.0 % Hematocrit 44.4 LAB MCV 80.0-100.0 fL MCV 95.3 LAB MCH 26.0-34.0 pG MCH 30.3 LAB MCHC 30.5-36.0 g/dL MCHC 31.8 LAB RDWCV 11.5-15.0 % RDW-CV 13.6 LAB PLTCT 150-400 k/uL Platelet 271 Count LAB MPV 9.0-12.7 fL MPV 11.8 LAB ANEUT % Neut% 55.5 LAB AANEUT 1.45-7.50 k/uL Abs Neut 2.62 LAB ALYMP % Lymph% 34.8 LAB AALYMP 1.00-4.00 k/uL Abs Lymph 1.65 LAB AMONO % Martin% 7.4 LAB AAMONO <0.87 k/uL Abs Martin 0.35 LAB AEOS % Eosin% 1.7 LAB AAEOS <0.46 k/uL Abs Eosin 0.08 LAB ABASO % Baso% 0.6 LAB AABASO <0.11 k/uL Abs Baso 0.03 LAB AUNRBC 0 /100 WBC NRBCs 0.0 LAB ABNRBC <0.01 k/uL Absolute nRBC <0.01 LAB DTYP DTYPE Auto Diff Performed By: #### CBCDIF, FERR, CMP, TSH #### [facility] [address] [place] [id number] FERRITIN Collected: 08/19/2017 Status: F Source: [place] 11:45 AM [facility] REPOSITORY TYPE CODE TESTS RESULT OUT OF REFERENCE UNITS RANGE LAB FERR 30.3-565.7 ng/mL Ferritin 161.1 Performed By: #### CBCDIF, FERR, CMP, TSH #### [facility] [address] [place] [address] COMP METABOLIC PANEL Collected: 08/19/2017 Status: F Source: [place] 11:45 [facility] REPOSITORY TYPE CODE TESTS RESULT OUT OF REFERENCE UNITS RANGE LAB TP 6.3-8.0 g/dL Protein, Total 7.0 LAB ALB 3.9-4.9 g/dL Albumin 4.1 LAB CA 8.5-10.2 mg/dL Calcium, Total 9.2 LAB TBIL 0.2-1.3 mg/dL Bilirubin, 0.4 Total LAB ALKP 36-108 U/L Alkaline 68 Phosphatase LAB AST 14-40 U/L AST 18 LAB GLU 74-99 mg/dL Glucose 79 Result Comment: The [place] Diabetes Association (ADA) provides guidance for cutoff values for fasting glucose and r andom glucose. The ADA defines fasting as no caloric intake for at least 8 hours. Fasting plasma glucose results between 100 to 125 mg/dL indicate increased risk for diabetes (prediabetes). Fasting plasma glucose results greater than or equal to 126 mg/dL meet the criteria for diagnosis of diabetes. In the absence of unequivocal hyperglycemia, results should be confirmed by repeat testing. In a patient with classic symptoms of hyperglycemia or hyperglycemic crisis, random plasma glucose results greater than or equal to 200 mg/dL meet the criteria for diagnosis of diabetes. Reference: Standards of Medical Care in Diabetes 2016, [place] Diabetes [employer]. Diabetes Care. 2016.39(Suppl 1). LAB BUN 9-24 mg/dL BUN 12 LAB CRET High 0.73-1.22 mg/dL Creatinine 1.24 LAB NA 136-144 mmol/L Sodium 142 LAB K 3.7-5.1 mmol/L Potassium 4.4 LAB CL 97-105 mmol/L Chloride 101 LAB CO2 22-30 mmol/L CO2 26 LAB AGAP 9-18 mmol/L Anion Gap 15 LAB ALT 10-54 U/L ALT 16 LAB GFRAA eGFR- Amer. >60 LAB GFRNAA . eGFR-All Other Races >60 Result Comment: eGFR (Estimated GFR) Units of measure: mL/min/1.73 meters squared eGFR is derived from the reexpressed MDRD Study equation using the following parameters: serum creatinine, age, gender and race. The creatinine assay has been calibrated to be traceable to IDMS. An eGFR <60 mL/min/1.73m2 for >3 months is consistent with chronic kidney disease. Refer to KDOQI guidelines for clinical interpretation. In patients with unstable renal function, e.g. those with acute kidney injury, the eGFR may not accurately reflect actual GFR. Performed By: #### CBCDIF, FERR, CMP, TSH #### [facility] [address] [place] [id number] TSH Collected: 08/19/2017 Status: F Source: [place] 11:45 AM [facility] REPOSITORY TYPE CODE TESTS RESULT OUT OF RANGE REFERENCE UNITS LAB TSH 0.400-5.500 uU/mL TSH 1.610 Performed By: #### CBCDIF, FERR, CMP, TSH #### [facility] [address] [place], [place] [address] T4/FTI Collected: 08/19/2017 Status: F Source: [place] 11:44 AM [facility] REPOSITORY TYPE CODE TESTS RESULT OUT OF REFERENCE UNITS RANGE LAB T4 5.5-10.2 ug/dL T4 6.3 LAB T4U 0.91-1.19 T4 1.05 Uptake LAB FTI 5.3-10.8 ug/dL FTI 6.0 Performed By: #### T4FTI #### [facility] [address] [place], [place] [address] ECG COMPLETE W Observed: 08/19/2017 Status: F Source: [place] INTERPRETATION 11:12 AM [facility] REPOSITORY NAME : AISHA YAÑEZ : [id number] : 1970 Gender : MaleRace : CaucasianORD : [id number] Procedure Date : Aug 19 2017 11:12:27Edit Date : Aug 21 2017 09:11:57 Diagnosis:SINUS BRADYCARDIAOTHERWISE NORMAL ECGConfirmed by LORRIE STEVENSON D.O. ([id number]) on 08/21/2017 9:11:50 AM Ventricular Rate : 54 BPMAtrial Rate : 54 BPMP-R Interval : 160 msQRS Duration : 88 msQ-T Interval : 436 msQTC Calculation(Bezet) : 413 msP Howell : 44 degreesR Howell : 2 degreesT Howell : 9 degrees Test Reason : Location : 185 : [facility] Overread By : LORRIE STEVENSON D.O.Edited By : LORRIE STEVENSON D.O.Referred By : LOUANN SANCHEZAcquired by : KALIE WOLFF, PROGRESS Observed: 08/19/2017 Status: COMPLETED Source: [place] 10:28 AM [facility] REPOSITORY HNO ID: [id number]: Louann Howard (Chief Sales Officer) DanielSer: (none)Author Type: Nurse PractitionerType: Progress NotesFiled: 08/19/2017 4:22 PMNote Text:Chief ComplaintPatient presents with:Fatigue: and lightheaded x 3 weeksHPIPaul A Pari LUA is a 47 year old male who presents here today forAbove Complaints of lethargy, fatigued and tired all the time,inattentive, difficult to describe. Symptoms started about 3 weeks ago, noworse, not better. He notes he still is working each day,, no missed workdays. Wakes feeling rested. Sleep is fragmented, up to bathroom twice anight, maybe 6+ hours at night. Also describes dizziness, light headed,not spinning dizzy, and denies feeling like he will pass out. Also notesmental fog, forgetfullness where he will lose train of thought and need togather his thoughts before going on. Urine color appears light yellow,falls back asleep easily. Napping on weekends 2-3 hours at a time.Unusual for me. He admits recent forgetfulness in taking Effexor eachday. Several missed doses recently.Also notes swollen, non-tender, non-erythematous nodules along right neck.Present for about 6 months.HTN: last seen 2 months ago. Amlodipine was added at that time, not addedor acquired yet.Last 3 Encounter BP Readings: Date: BP: 08/19/2017 150/110 06/21/2017 150/99[Average (from Extended Vitals)[ 06/06/2017 174/113Last 3 Encounter Wt Readings: Date: Wt: 08/19/2017 87.5 kg (193 lb) 06/21/2017 88 kg (194 lb) 06/06/2017 91.2 kg (201 lb)Past medical history, appointments, medications, allergies reviewed.Previous Medical HistoryPAST MEDICAL HISTORYDiagnosis Date- Essential hypertension, benign 10/10/2009- Generalized anxiety disorder- Inguinal hernia unilateral 07/30/2010Previous Surgical HistoryNo past surgical history on file.Family HistoryFAMILY HISTORYProblem Relation Age of Onset- None Mother- Psychiatry Father chronic anxiety- Diabetes Maternal Grandfather- alcoholism [OTHER] Brother- None Brother- None BrotherPatient AllergiesALLERGIESAllergen Reactions- Bees HivesCurrent MedicationsCurrent Outpatient Prescriptions on File Prior to Visit:venlafaxine ER (EFFEXOR XR) 75 mg 24 hr capsule Take 1 capsule by mouthonce daily.lisinopril-hydrochlorothiazide (PRINZIDE,ZESTORETIC) 20-12.5 mg per tabletTake 2 tablets by mouth once daily.MULTIVITAMIN ORAL Take 1 tablet by mouth once daily.sildenafil (VIAGRA) 50 mg tablet Take 1 tablet by mouth as needed.amLODIPine (NORVASC) 5 mg tablet Take 1 tablet by mouth once daily.No current facility-administered medications on file prior to visit.Social HistorySocial History Marital status: Spouse name: Years of education: Number of children:Social History Main Topics Smoking status: Never Smoker Smokeless tobacco: Never Used Alcohol use: Yes Comment: 3 beers per week Drug use: NoReview of SymptomsREVIEW OF SYSTEMSPAIN ASSESSMENT: Negative for pain, history of chronic pain, or currenttreatment for a chronic pain condition.GENERAL: FatigueHEENT: Negative for frequent or significant headaches, No changes inhearing or vision, no nose bleeds or other nasal problemsNECK: Negative for lumps, goiter, pain and significant neck swellingRESPIRATORY: Negative for cough, hemoptysis, wheezing, COPD, dyspnea orshortness of breathCARDIOVASCULAR: Negative for chest pain, leg swelling, hypertension, CHFor palpitationsGI: No nausea, vomiting, or diarrhea, No heartburn or reflux symptoms andConstipationEXAM:BP 150/110 Pulse 60 Temp 36.4 ?C (97.5 ?F) (Tympanic) Resp 18 Wt 87.5 kg (193 lb) BMI 27.69 kg/m?General Appearance: Well appearing, alert, in no acute distress,well-hydrated, well nourished..Oropharynx: Lips, mucosa, and tongue normal, teeth and gums normal,oropharynx normal.Neck: Supple, ; thyroid symmetric, normal size, no bruits, Positivefindings: 2 cm mobile, firm mass right lower jaw line, tonsillar nodearea, difficult to delineate if 2 separate massesLungs: Lungs clear to auscultation. No wheezing, rhonchi, rales.Heart: RRR without murmur, gallop, or rubs. No ectopy.Abdomen: Normal abdominal exam, Abdomen soft, non-tender. Bowel soundsnormal. No masses, organomegaly.Extremities: No deformities, edema, skin discoloration, clubbing orcyanosis. Good capillary refill. .Neurologic: Gait normal.Sensation grossly intact., Negative findings:speech normal, mental status intact, cranial nerves 2-12 intact.Health Maintenance ListINFLUENZA(Season Ended) due on 11/08/2017DTAP,TDAP,TD(2 - Td) due on 09/15/2019DIABETES SCREEN due on 1LIPID SCREEN due on 06/06/2022 ASSESSMENT/PLAN:1. Essential hypertension, benign - ICD9: 401.1, ICD10: I10 (primarydiagnosis)- poor control- Recommended regular aerobic exercise.- Recommend home blood pressure monitoring, to bring results in on nextvisit- Goal of BP <130/80- ECG COMPLETE W INTERPRETATION- URINALYSIS WITH MICROSCOPIC2. Adjustment disorder with mixed anxiety and depressed mood - ICD9:309.28, ICD10: F43.23-Will switch from Effexor to Cymbalta as may be contributing to HTN andsx.- DULOXETINE 30 MG CAPSULE,DELAYED RELEASE3. Fatigue, unspecified type - ICD9: 780.79, ICD10: R53.83- Lab as ordered- CBC + DIFF- TSH BLD- T4/FTI/T4U- FERRITIN BLD- COMP METABOLIC PANEL4. Neck mass - ICD9: 784.2, ICD10: R22.1- CT neck w/IV contrast5. Localized swelling, mass or lump of neck - ICD9: 784.2, ICD10: R22.1- CT NECK SOFT TISSUE W IVCON- IV CONTRAST (RADIOLOGY PROCEDURE)Louann Sanchez, MSN CHARGING CAR OPERATOR.SIGNAL INTELLIGENCE/ELECTRONIC WARFARE CNOV Observed: 08/19/2017 Status: COMPLETED Source: [place] 10:20 AM [facility] REPOSITORY Office Visit (FAMPWS) VINH YAÑEZ JR ([id number]) 1970 [facility]/19/17 10:20 AM LOUANN SANCHEZ (TETRYL WRINGER OPERATOR) FAMPWS During your visit today, we recorded the following information about you: Temperature Pulse Respiration Blood pressure 97.5 degrees 60/minute 18/minute 150/110 Weight 87.5 kgLouann Sanchez, MSN CHARGING CAR OPERATOR.SIGNAL INTELLIGENCE/ELECTRONIC WARFARE 08/19/2017 4:22 PM SignedChief ComplaintPatient presents with:Fatigue: and lightheaded x 3 weeksHPIPatressa Yañez JR is a 47 year old male who presents here today for AboveComplaints of lethargy, fatigued and tired all the time, inattentive, difficultto describe. Symptoms started about 3 weeks ago, no worse, not better. He noteshe still is working each day,, no missed work days. Wakes feeling rested. Sleepis fragmented, up to bathroom twice a night, maybe 6+ hours at night. Alsodescribes dizziness, light headed, not spinning dizzy, and denies feeling likehe will pass out. Also notes mental fog, forgetfullness where he will losetrain of thought and need to gather his thoughts before going on. Urine colorappears light yellow, falls back asleep easily. Napping on weekends 2- 3 hoursat a time. Unusual for me. He admits recent forgetfulness in taking Effexoreach day. Several missed doses recently.Also notes swollen, non-tender, non-erythematous nodules along right neck.Present for about 6 months.HTN: last seen 2 months ago. Amlodipine was added at that time, not added oracquired yet.Last 3 Encounter BP Readings: Date: BP: 08/19/2017 150/110 06/21/2017 150/99[Average (from Extended Vitals)[ 06/06/2017 174/113Last 3 Encounter Wt Readings: Date: Wt: 08/19/2017 87.5 kg (193 lb) 06/21/2017 88 kg (194 lb) 06/06/2017 91.2 kg (201 lb)Past medical history, appointments, medications, allergies reviewed.Previous Medical HistoryPAST MEDICAL HISTORYDiagnosis Date- Essential hypertension, benign 10/10/2009- Generalized anxiety disorder- Inguinal hernia unilateral 07/30/2010Previous Surgical HistoryNo past surgical history on file.Family HistoryFAMILY HISTORYProblem Relation Age of Onset- None Mother- Psychiatry Father chronic anxiety- Diabetes Maternal Grandfather- alcoholism [OTHER] Brother- None Brother- None BrotherPatient AllergiesALLERGIESAllergen Reactions- Bees HivesCurrent MedicationsCurrent Outpatient Prescriptions on File Prior to Visit:venlafaxine ER (EFFEXOR XR) 75 mg 24 hr capsule Take 1 capsule by mouth oncedaily.lisinopril-hydrochlorothiazide (PRINZIDE,ZESTORETIC) 20-12.5 mg per tablet Take2 tablets by mouth once daily.MULTIVITAMIN ORAL Take 1 tablet by mouth once daily.sildenafil (VIAGRA) 50 mg tablet Take 1 tablet by mouth as needed.amLODIPine (NORVASC) 5 mg tablet Take 1 tablet by mouth once daily.No current facility-administered medications on file prior to visit.Social HistorySocial History Marital status: Spouse name: Years of education: Number of children:Social History Main Topics Smoking status: Never Smoker Smokeless tobacco: Never Used Alcohol use: Yes Comment: 3 beers per week Drug use: NoReview of SymptomsREVIEW OF SYSTEMSPAIN ASSESSMENT: Negative for pain, history of chronic pain, or currenttreatment for a chronic pain condition.GENERAL: FatigueHEENT: Negative for frequent or significant headaches, No changes in hearing orvision, no nose bleeds or other nasal problemsNECK: Negative for lumps, goiter, pain and significant neck swellingRESPIRATORY: Negative for cough, hemoptysis, wheezing, COPD, dyspnea orshortness of breathCARDIOVASCULAR: Negative for chest pain, leg swelling, hypertension, CHF orpalpitationsGI: No nausea, vomiting, or diarrhea, No heartburn or reflux symptoms andConstipationEXAM:BP 150/110 Pulse 60 Temp 36.4 ?C (97.5 ?F) (Tympanic) Resp 18 Wt87.5 kg (193 lb) BMI 27.69 kg/m?General Appearance: Well appearing, alert, in no acute distress, well-hydrated,well nourished..Oropharynx: Lips, mucosa, and tongue normal, teeth and gums normal, oropharynxnormal.Neck: Supple, ; thyroid symmetric, normal size, no bruits, Positive findings: 2cm mobile, firm mass right lower jaw line, tonsillar node area, difficult todelineate if 2 separate massesLungs: Lungs clear to auscultation. No wheezing, rhonchi, rales.Heart: RRR without murmur, gallop, or rubs. No ectopy.Abdomen: Normal abdominal exam, Abdomen soft, non-tender. Bowel sounds normal.No masses, organomegaly.Extremities: No deformities, edema, skin discoloration, clubbing or cyanosis.Good capillary refill. .Neurologic: Gait normal.Sensation grossly intact., Negative findings: speechnormal, mental status intact, cranial nerves 2-12 intact.Health Maintenance ListINFLUENZA(Season Ended) due on 11/08/2017DTAP,TDAP,TD(2 - Td) due on 09/15/2019DIABETES SCREEN due on 1LIPID SCREEN due on 06/06/2022 ASSESSMENT/PLAN:1. Essential hypertension, benign - ICD9: 401.1, ICD10: I10 (primary diagnosis)- poor control- Recommended regular aerobic exercise.- Recommend home blood pressure monitoring, to bring results in on next visit- Goal of BP <130/80- ECG COMPLETE W INTERPRETATION- URINALYSIS WITH MICROSCOPIC2. Adjustment disorder with mixed anxiety and depressed mood - ICD9: 309.28,ICD10: F43.23-Will switch from Effexor to Cymbalta as may be contributing to HTN and sx.- DULOXETINE 30 MG CAPSULE,DELAYED RELEASE3. Fatigue, unspecified type - ICD9: 780.79, ICD10: R53.83- Lab as ordered- CBC + DIFF- TSH BLD- T4/FTI/T4U- FERRITIN BLD- COMP METABOLIC PANEL4. Neck mass - ICD9: 784.2, ICD10: R22.1- CT neck w/IV contrast5. Localized swelling, mass or lump of neck - ICD9: 784.2, ICD10: R22.1- CT NECK SOFT TISSUE W IVCON- IV CONTRAST (RADIOLOGY PROCEDURE)Louann Sanchez, MSN CHARGING CAR OPERATOR.CNPReferring Provider: SELF [[id number]]Allergies As of Date: 08/19/2017 Noted Allergy ReactionBEES 06/06/2017 4 - HivesDate Reviewed: 08/19/2017Reviewed by: Quynh Hester STATIONARY ENGINEER SUPERVISOR - Fully AssessedReason for Visit: Fatigue [46] Cmt: and lightheaded x 3 weeksPrimary Visit Diagnosis:Essential hypertension, benign [I10] Other Visit Diagnoses:Adjustment disorder with mixed anxiety and depressed mood [F43.23] Fatigue, unspecified type [R53.83] Neck mass [R22.1] Localized swelling, mass or lump of neck [R22.1]Order(s):ECG COMPLETE W INTERPRETATION [ECG01] Order #: [id number] FUTURE CBC + DIFF [SQCBCDIF] Order #: [id number] FUTURE TSH BLD [SQTSH] Order #: [id number] FUTURE T4/FTI/T4U [JJJ1FIM] Order #: [id number]. #:[id number] CT NECK SOFT TISSUE W IVCON [[id number]] Order #: [id number] FUTURE [] iv contrast (will be provided with radiology test)Inject 1 Each intravenously one time only for [address] Neck W IVCON No IV access, insert saline lock prior to the sedation, infusion, injection for imaging exam. Discontinue saline lock post exam. If Pt. has a central line or IVAD, may access for administration according to line specific nursing protocol. Once exam is complete flush line and de-access according to line specific nursing protocol in the CT contrast administration guidelines link.Disp: 1 EachRfl: 0 URINALYSIS WITH MICROSCOPIC [SQUAWMIC] Order #: [id number]. #:[id number] FERRITIN BLD [SQFERR] Order #: [id number] FUTURE COMP METABOLIC PANEL [SQCMP] Order #: [id number] FUTURE DULoxetine (CYMBALTA) 30 mg capsuleTake 1 capsule by mouth once daily.Disp: 30 capsuleRfl: 5Prescriptions as of 08/19/2017 Sig: LISINOPRIL 20 MG-HYDROCHLOROT* Take 2 tablets by mouth once * * MULTIVITAMIN ORAL Take 1 tablet by mouth once d* IV CONTRAST (RADIOLOGY PROCED* Inject 1 Each intravenously o* DULOXETINE 30 MG CAPSULE,KATHLEEN* Take 1 capsule by mouth once * SILDENAFIL 50 MG TABLET Take 1 tablet by mouth as nee* AMLODIPINE 5 MG TABLET Take 1 tablet by mouth once d*Problem List As Of Date 08/19/2017 Noted Resolved GENERALIZED ANXIETY DIS [F41.1] INVALID FOR* ESOPHAGEAL REFLUX [K21.9] INVALID FOR* Eczema, Dyshidrotic [L30.1] INVALID FOR* Essential Hypertension, Benign [I10] INVALID FOR* Inguinal ring laxity [K40.90] INVALID FOR*06/06/2017 Inguinal hernia, left [K40.90] INVALID FOR* Inguinal hernia [K40.90] INVALID FOR*06/06/2017 Adjustment disorder with mixed anxiety and depr*INVALID FOR* Hyperlipidemia LDL goal <130 [E78.5] INVALID FOR* Erectile dysfunction [N52.9] INVALID FOR*Prescriptions ordered this encounter Disp Refills Start End IV CONTRAST (RADIOLOGY PROCEDURE) 1 Ea* 0 08/19/2017 08/19/2017 Class: In Office Route: INTRAVENOUS Sig: Inject 1 Each intravenously one time only for [address] Neck W IVCON No IV access, insert saline lock prior to the sedation, infusion, injection for imaging exam. Discontinue saline lock post exam. If Pt. has a central line or IVAD, may access for administration according to line specific nursing protocol. Once exam is complete flush line and de-access according to line specific nursing protocol in the CT contrast administration guidelines link. DULOXETINE 30 MG CAPSULE,DELAYED REL* 30 c* 5 08/19/2017 Route: ORAL Sig: Take 1 capsule by mouth once daily.Medications Discontinued During This Encounter venlafaxine ER (EFFEXOR XR) 75 mg 24* 30 c* 11 06/06/2017 08/19/2017 Route: ORAL Sig: Take 1 capsule by mouth once daily. Disc: Clinical DecisionDisposition: Return in about 2 weeks (around 09/02/2017).Follow-up and Disposition History RecordedEncounter Number: [id number] Status:Closed by LOUANN SANCHEZ CNP on 08/19/17 PROGRESS Observed: 06/21/2017 Status: COMPLETED Source: [place] 10:26 AM [facility] REPOSITORY O ID: [id number]: Ronald Jean Baptiste IIISer: (none)Author Type: PhysicianType: Progress NotesFiled: 06/21/2017 11:34 AMNote Text:SUBJECTIVE: This is a 47 year old male that is here today for1. f/u of BP: tolerating meds well.2. anxiety: has not needed many ativan in past mo.3. erectile dysfunction--difficulty maintaining erection.PAST MEDICAL HISTORYDiagnosis Date- Essential hypertension, benign 10/10/2009- Generalized anxiety disorder- Inguinal hernia unilateral 07/30/2010Current Outpatient Prescriptions on File Prior to Visit:venlafaxine ER (EFFEXOR XR) 75 mg 24 hr capsule Take 1 capsule by mouthonce daily.lisinopril-hydrochlorothiazide (PRINZIDE,ZESTORETIC) 20-12.5 mg per tabletTake 2 tablets by mouth once daily.LORazepam (ATIVAN) 1 mg tablet Take 0.5 tablets by mouth twice daily asneeded for Anxiety for up to 30 days.MULTIVITAMIN ORAL Take 1 tablet by mouth once daily.No current facility-administered medications on file prior to visit.FAMILY HISTORYProblem Relation Age of Onset- None Mother- Psychiatry Father chronic anxiety- Diabetes Maternal Grandfather- alcoholism [OTHER] Brother- None Brother- None BrotherSocial HistorySubstance Use Topics- Smoking status: Never Smoker- Smokeless tobacco: Never Used- Alcohol use Yes Comment: 3 beers per week Resp 18 Wt 88 kg (194 lb) BMI 27.84 kg/m2.OBJECTIVE:APPEARANCE Well appearing, alert, in no acute distress, well-hydrated,well nourished.,Appearance: well dressed well groomed, cooperative and pleasantBehavior: good eye contactSpeech: fluent and coherentMood: euthymicAffect: appropriatePerceptions: noneThought process: goal directedThought Content: normalIntelligence level: normalInsight: goodJudgment: goodASSESSMENT:hypertension--not at goalanxiety--well controllederectile dysfunctionPLAN:healthy diet and regular exercisetry viagra 50 mg as neededcontinue lisinopril/hct 20/12.5 two tablets every AMadd amlodipine 5 mg every AM --nurse bp check in 2 wksFrCARLY Boston III MD CNOV Observed: 06/21/2017 Status: COMPLETED Source: [place] 10:00 AM [facility] REPOSITORY Office Visit (FAMPWS) VINH YAÑEZ JR ([id number]) 1970 [facility]06/21/17 10:00 AM RONALD JEAN BAPTISTE III [facility] During your visit today, we recorded the following information about you: Pulse Respiration Blood pressure Weight 62/minute 18/minute 154/104 88 kgFrbobby Jean Baptiste III MD 06/21/2017 11:34 AM SignedSUBJECTIVE: This is a 47 year old male that is here today for1. f/u of BP: tolerating meds well.2. anxiety: has not needed many ativan in past mo.3. erectile dysfunction--difficulty maintaining erection.PAST MEDICAL HISTORYDiagnosis Date- Essential hypertension, benign 10/10/2009- Generalized anxiety disorder- Inguinal hernia unilateral 07/30/2010Current Outpatient Prescriptions on File Prior to Visit:venlafaxine ER (EFFEXOR XR) 75 mg 24 hr capsule Take 1 capsule by mouth oncedaily.lisinopril-hydrochlorothiazide (PRINZIDE,ZESTORETIC) 20-12.5 mg per tablet Take2 tablets by mouth once daily.LORazepam (ATIVAN) 1 mg tablet Take 0.5 tablets by mouth twice daily as neededfor Anxiety for up to 30 days.MULTIVITAMIN ORAL Take 1 tablet by mouth once daily.No current facility-administered medications on file prior to visit.FAMILY HISTORYProblem Relation Age of Onset- None Mother- Psychiatry Father chronic anxiety- Diabetes Maternal Grandfather- alcoholism [OTHER] Brother- None Brother- None BrotherSocial HistorySubstance Use Topics- Smoking status: Never Smoker- Smokeless tobacco: Never Used- Alcohol use Yes Comment: 3 beers per week Resp 18 Wt 88 kg (194 lb) BMI 27.84 kg/m2.OBJECTIVE:APPEARANCE Well appearing, alert, in no acute distress, well-hydrated, wellnourished.,Appearance: well dressed well groomed, cooperative and pleasantBehavior: good eye contactSpeech: fluent and coherentMood: euthymicAffect: appropriatePerceptions: noneThought process: goal directedThought Content: normalIntelligence level: normalInsight: goodJudgment: goodASSESSMENT:hypertension--not at goalanxiety--well controllederectile dysfunctionPLAN:healthy diet and regular exercisetry viagra 50 mg as neededcontinue lisinopril/hct 20/12.5 two tablets every AMadd amlodipine 5 mg every AM --nurse bp check in 2 wksFrank CARLY Chavez III MDFrank A Cebul, III MD 06/21/2017 10:40 AM SignedPLAN:healthy diet and regular exercisetry viagra 50 mg as neededcontinue lisinopril/hct 20/12.5 two tablets every AMadd amlodipine 5 mg every AM --nurse bp check in 2 wksFrank Cassandra Jean Baptiste III MDReferring Provider: RONALD JEAN BAPTISTE III [[id number]]Allergies As of Date: 06/21/2017 Noted Allergy ReactionBEES 06/06/2017 4 - HivesDate Reviewed: 06/21/2017Reviewed by: Verenice Baird) Mohamud, MA - Fully AssessedReason for Visit: BP Check [142]Primary Visit Diagnosis:Generalized anxiety disorder [F41.1] Other Visit Diagnoses:Essential hypertension, benign [I10] Erectile dysfunction, unspecified erectile dysfunction type [N52.9]Order(s):sildenafil (VIAGRA) 50 mg tabletTake 1 tablet by mouth as needed.Disp: 6 tabletRfl: 11 amLODIPine (NORVASC) 5 mg tabletTake 1 tablet by mouth once daily.Disp: 30 tabletRfl: 11Prescriptions as of 06/21/2017 Sig: VENLAFAXINE ER 75 MG CAPSULE,* Take 1 capsule by mouth once * LISINOPRIL 20 MG-HYDROCHLOROT* Take 2 tablets by mouth once * LORAZEPAM 1 MG TABLET Take 0.5 tablets by mouth twi* * MULTIVITAMIN ORAL Take 1 tablet by mouth once d* SILDENAFIL 50 MG TABLET Take 1 tablet by mouth as nee* AMLODIPINE 5 MG TABLET Take 1 tablet by mouth once d*Problem List As Of Date 06/21/2017 Noted Resolved GENERALIZED ANXIETY DIS [F41.1] INVALID FOR* ESOPHAGEAL REFLUX [K21.9] INVALID FOR* Eczema, Dyshidrotic [L30.1] INVALID FOR* Essential Hypertension, Benign [I10] INVALID FOR* Inguinal ring laxity [K40.90] INVALID FOR*06/06/2017 Inguinal hernia, left [K40.90] INVALID FOR* Inguinal hernia [K40.90] INVALID FOR*06/06/2017 Adjustment disorder with mixed anxiety and depr*INVALID FOR* Hyperlipidemia LDL goal <130 [E78.5] INVALID FOR* Erectile dysfunction [N52.9] INVALID FOR* Other instructions from your clinician: PLAN: healthy diet and regular exercise try viagra 50 mg as needed continue lisinopril/hct 20/12.5 two tablets every AM add amlodipine 5 mg every AM --nurse bp check in 2 wks Ronald Jean Baptiste III MDPrescriptions ordered this encounter Disp Refills Start End SILDENAFIL 50 MG TABLET 6 ta* 06/21/2017 Class: Print RX Route: ORAL Sig: Take 1 tablet by mouth as needed. AMLODIPINE 5 MG TABLET 30 t* 06/21/2017 Route: ORAL Sig: Take 1 tablet by mouth once daily.Classic SmartForms filed during this visit:Extended VitalsEncounter Number: [id number] Status:Closed by RONALD JEAN BAPTISTE III, MD on 06/21/17 PROGRESS Observed: 06/07/2017 Status: COMPLETED Source: [place] 4:38 PM [facility] RE[facility] HNO ID: [id number]: Ronald Jean Baptiste IIIService: (none)Author Type: PhysicianType: Progress NotesFiled: 06/07/2017 4:38 PMNote Text:Johnson,The bad LDL cholesterol is significantly better than it was a year ago.Continue with low-fat diet with regular exercise. I do not think that youneed medication treatment at this time. We should recheck the lipids in 6monthsThe blood sugar, liver function tests, kidney function tests, and otherlab results are all normal.Ronald Jean Baptiste III, MD, FAAFP HEMOGLOBIN A1C Collected: 06/06/2017 Status: F Source: [place] 9:50 AM [facility] REPOSITORY TYPE CODE TESTS RESULT OUT OF REFERENCE UNITS RANGE LAB HGBA1C High 4.3-5.6 % Hemoglobin 5.7 A1c LAB HBA0 mg/dL Est. Average 117 Glucose Result Comment: eAG: (Estimated average glucose) is a calculated value from HgbA1c and is client service representative of the average blood glucose level in the last 2-3 month period. Performed By: #### HBA1C #### [facility] [address] [place] [address] COMP METABOLIC PANEL Collected: 06/06/2017 Status: F Source: [place] 9:44 AM [facility] REPOSITORY TYPE CODE TESTS RESULT OUT OF REFERENCE UNITS RANGE LAB TP 6.3-8.0 g/dL Protein, Total 7.4 LAB ALB Low 3.9-4.9 g/dL Albumin 3.8 LAB CA 8.5-10.2 mg/dL Calcium, Total 9.3 LAB TBIL 0.2-1.3 mg/dL Bilirubin, 0.2 Total LAB ALKP 36-108 U/L Alkaline 74 Phosphatase LAB AST 14-40 U/L AST 21 LAB GLU 74-99 mg/dL Glucose 95 Result Comment: The [place] [employer] (ADA) provides guidance for cutoff values for fasting glucose and r andom glucose. The ADA defines fasting as no caloric intake for at least 8 hours. Fasting plasma glucose results between 100 to 125 mg/dL indicate increased risk for diabetes (prediabetes). Fasting plasma glucose results greater than or equal to 126 mg/dL meet the criteria for diagnosis of diabetes. In the absence of unequivocal hyperglycemia, results should be confirmed by repeat testing. In a patient with classic symptoms of hyperglycemia or hyperglycemic crisis, random plasma glucose results greater than or equal to 200 mg/dL meet the criteria for diagnosis of diabetes. Reference: Standards of Medical Care in Diabetes 2016, [place] [employer]. Diabetes Care. 2016.39(Suppl 1). LAB BUN 9-24 mg/dL BUN 24 LAB CRET High 0.73-1.22 mg/dL Creatinine 1.40 LAB NA 136-144 mmol/L Sodium 141 LAB K 3.7-5.1 mmol/L Potassium 3.7 LAB CL 97-105 mmol/L Chloride 101 LAB CO2 22-30 mmol/L CO2 28 LAB AGAP 9-18 mmol/L Anion Gap 12 LAB ALT 10-54 U/L ALT 18 LAB GFRAA eGFR- Amer. >60 LAB GFRNAA . eGFR-All Other Races 54 Result Comment: eGFR (Estimated GFR) Units of measure: mL/min/1.73 meters squared eGFR is derived from the reexpressed MDRD Study equation using the following parameters: serum creatinine, age, gender and race. The creatinine assay has been calibrated to be traceable to IDMS. An eGFR <60 mL/min/1.73m2 for >3 months is consistent with chronic kidney disease. Refer to KDOQI guidelines for clinical interpretation. In patients with unstable renal function, e.g. those with acute kidney injury, the eGFR may not accurately reflect actual GFR. Performed By: #### CMP, LIPB #### [facility] [address] [place], [place] [address] LIPID PANEL, BASIC Collected: 06/06/2017 Status: F Source: [place] 9:44 AM [facility] REPOSITORY TYPE CODE TESTS RESULT OUT OF REFERENCE UNITS RANGE LAB CHOL High <200 mg/dL Cholesterol 214 Result Comment: <200 mg/dL, Desirable 200-239 mg/dL, Borderline high >239 mg/dL, High LAB TRIGLY <150 mg/dL Triglyceride 82 Result Comment: <150 mg/dL, Normal 150-199 mg/dL, Borderline high 200-499 mg/dL, High >499 mg/dL, Very high LAB HDL >39 mg/dL HDL-Cholesterol 45 Result Comment: 40-59 mg/dL, Acceptable >59 mg/dL, High: Negative risk factor for coronary heart disease <40 mg/dL, Low: Positive risk factor for coronary heart disease LAB LDL High <100 mg/dL LDL-Cholesterol 153 Result Comment: <100 mg/dL, Optimal 100-129 mg/dL, Near optimal/above optimal 130-159 mg/dL, Borderline high 160-189 mg/dL, High >189 mg/dL, Very high Secondary prevention optimal LDL Cholesterol levels are recommended to be < 70 mg/dL LAB NONHDL High <130 mg/dL Non HDL Cholesterol 169 Result Comment: <130 mg/dL, Optimal 130-159 mg/dL, Near optimal/above optimal 160-189 mg/dL, Borderline high 190-219 mg/dL, High >219 mg/dL, Very high Secondary prevention optimal non HDL Cholesterol levels are recommended to be < 100 mg/dL LAB FT hrs Fasting Time 2 LAB VLDL <30 mg/dL VLDL Cholesterol 16 LAB TCHDL <5.10 TC:HDL Ratio 4.76 LAB LDLHDL High <2.54 LDL:HDL Ratio 3.40 Result Comment: Reference: 1. National Cholesterol Education Program ATP III Guideline At-A-Glance Quick Desk Reference: National Heart, Lung, and Blood [place]. National Institutes of Health. 2001: NIH Publication No. 01-3305. 2. An International Atherosclerosis Society position paper: global recommendations for the management of dyslipidemia: executive summary, Atherosclerosis. 2014: 232(2):410-413. Performed By: #### CMP, LIPB #### [facility] [address] [place] [address] PROGRESS Observed: 06/06/2017 Status: COMPLETED Source: [place] 8:56 AM [facility] REPOSITORY HNO ID: [id number]: Ronald Jean Baptiste IIIService: (none)Author Type: PhysicianType: Progress NotesFiled: 06/06/2017 12:30 PMNote Text:SUBJECTIVE:Chief Complaint:Vinh Yañez JR is a 47 year old male who presents for comprehensiveproblem evaluation.New concerns today include1. hypertension2. nocturia x 3-4.3. sexual dysfunction with good erections. Good libido.4. ch anxiety--uses ativan rarely (in response to stress from drugaddicted ex- and shared parenting)Exercises regularly YesCholesterol screening up to date NoCurrent Outpatient Prescriptions on File Prior to Visit:venlafaxine ER (EFFEXOR XR) 75 mg 24 hr capsule Take 1 capsule by mouthonce daily.LORazepam (ATIVAN) 1 mg tablet Take 0.5 tablets by mouth twice daily asneeded for Anxiety.lisinopril-hydrochlorothiazide (PRINZIDE,ZESTORETIC) 20-12.5 mg per tabletTake 1 tablet by mouth once daily.MULTIVITAMIN ORAL Take 1 tablet by mouth once daily.No current facility-administered medications on file prior to visit.PAST MEDICAL HISTORYDiagnosis Date- Essential hypertension, benign 10/10/2009- Generalized anxiety disorder- Inguinal hernia unilateral 07/30/2010No past surgical history on file.FAMILY HISTORYProblem Relation Age of Onset- None Mother- Psychiatry Father chronic anxiety- Diabetes Maternal Grandfather- alcoholism [OTHER] Brother- None Brother- None BrotherSocial History Marital status: Spouse name: Years of education: Number of children:Social History Main Topics Smoking status: Never Smoker Smokeless status: Never Used Alcohol use: Yes Comment: 3 beers per week Drug use: NoImmunization HistoryAdministered Date(s) Administered Influenza Seasonal Inj Age 3+ 01/14/2014 Influenza Vaccine, Split-Non Spec 03/09/2012 Tdap (Age 7+) 09/14/2009CTIVE PROBLEM LISTGeneralized Anxiety DisorderEsophageal RefluxEczema, DyshidroticEssential Hypertension, BenignInguinal Ring LaxitySterilizationInguinal Hernia, LeftInguinal HerniaAdjustment Disorder With Mixed Anxiety and Depressed MoodHyperlipidemia Ldl Goal <130REVIEW OF SYSTEMSGeneral: Denies fever, chills, night sweats, or changes in weight.Dermatologic: Denies any new skin conditions, rashes or changing moles.Eyes:ENT: Denies hearing loss or tinnitusRespiratory: Denies any cough, dyspnea, or wheezing.Cardiovascular: Denies any chest pain with exertion or at rest,palpitations, syncope, or edema.Gastrointestinal: Denies any nausea, vomiting, abdominal pain, heartburn,changes in bowel habit, Denies any rectal bleeding.Genitourinary: Denies Denies problems with urinary stream., Deniesdysuria, frequency, urgency, incontinence, erectile dysfunction, hematuriaand nocturia.Musculoskeletal: Denies any joint swelling, crepitus, joint pain, or lossof range of motion., Denies back pain.Neurologic: Denies any headaches, tremors, dizziness, vertigo, memoryloss, confusion., Denies weakness, numbness or tingling.Psychiatric: Denies any sleeping problems, history of abuse, maritaldiscord., Denies any anxiety or depression.Hematologic/Lymphatic/Immunologic: Denies anemia, bruising, bleedingabnormalities.Endocrine: Denies any heat or cold intolerance, polyuria or polydipsia.OBJECTIVE:PHYSICAL EXAMINATION:BP 174/113 Pulse 70 Resp 16 Ht 177.8 cm (5' 10) Wt 91.2 kg (201lb) BMI 28.84 kg/q1GQKQSLV APPEARANCE Well appearing, alert, in no acute distress,well-hydrated, well nourished.SKIN: small pustule R angle of jaw.HEAD: No significant findings.EYES: Negatives conjunctivae and sclerae normal and lids and lashesnormalEARS: External ears normal, canals clearNOSE/SINUSES: Nasal mucosa normalOROPHARYNX: Lips, mucosa, and tongue normal, teeth and gums normal andoropharynx normal.NECK: Supple, full range of motion, normal thyroid, no carotid bruits, noJVD and single R superior ant cervical nodeBACK: Back symmetric, Normal curvature, No CVAT.LUNGS: normal pulmonary exam and clear to auscultation and percussionHEART: Normal PMI, Regular rate and rhythm, Normal heart sounds, S1 and S2and No murmurs.BREASTS:ABDOMEN: Soft, Non-tender, No palpable masses and No hepatosplenomegaly.EXTREMTIES: extremities normal, no deformities, no skin discoloration, noedema, normal pulses bilaterally.NEURO: Awake, alert and oriented x 3, Reflexes symmetrical, Normal gait,No involuntary motions., muscle tone normal, muscle strength normalGENITALIA: Penis normal, no urethral discharge, scrotum normal topalpation, no herniasRECTAL: Anus normal, no anorectal masses, Prostate normal size,consistency, no nodules, and no tendernessASSESSMENT:hypertension--not at goalch anxiety--well controlledreactive cervical nodePLAN:healthy diet and regular exerciseincrease lisinopril-hct 20/12.5 two by mouth every AM--nurse bp checkin 2 wkslabs as ordereduse ativan sparingly as needed for severe anxietyCARLY Gonsales website checked and validated. No controlled substance prescriptionswere reported.- 06/06/2017 by CARLY Gonsales III MD CNOV Observed: 06/06/2017 Status: COMPLETED Source: [place] 8:40 AM [facility] REPOSITORY Office Visit (FAMPWS) PARIVINH Trujillo ([id number]) 1970 MDate Time Provider Department06/06/17 8:40 AM RONALD JEAN BAPTISTE III During your visit today, we recorded the following information about you: Pulse Respiration Blood pressure Weight 70/minute 16/minute 174/113 91.2 kg Height 1.778 Ajay Jean Baptiste III MD 06/06/2017 12:30 PM SignedSUBJECTIVE:Chief Complaint:Vinh Yañez JR is a 47 year old male who presents for comprehensiveproblem evaluation.New concerns today include1. hypertension2. nocturia x 3-4.3. sexual dysfunction with good erections. Good libido.4. ch anxiety--uses ativan rarely (in response to stress from drug addictedex- and shared parenting)Exercises regularly YesCholesterol screening up to date NoCurrent Outpatient Prescriptions on File Prior to Visit:venlafaxine ER (EFFEXOR XR) 75 mg 24 hr capsule Take 1 capsule by mouth oncedaily.LORazepam (ATIVAN) 1 mg tablet Take 0.5 tablets by mouth twice daily as neededfor Anxiety.lisinopril-hydrochlorothiazide (PRINZIDE,ZESTORETIC) 20-12.5 mg per tablet Take1 tablet by mouth once daily.MULTIVITAMIN ORAL Take 1 tablet by mouth once daily.No current facility-administered medications on file prior to visit.PAST MEDICAL HISTORYDiagnosis Date- Essential hypertension, benign 10/10/2009- Generalized anxiety disorder- Inguinal hernia unilateral 07/30/2010No past surgical history on file.FAMILY HISTORYProblem Relation Age of Onset- None Mother- Psychiatry Father chronic anxiety- Diabetes Maternal Grandfather- alcoholism [OTHER] Brother- None Brother- None BrotherSocial History Marital status: Spouse name: Years of education: Number of children:Social History Main Topics Smoking status: Never Smoker Smokeless status: Never Used Alcohol use: Yes Comment: 3 beers per week Drug use: NoImmunization HistoryAdministered Date(s) Administered Influenza Seasonal Inj Age 3+ 01/14/2014 Influenza Vaccine, Split-Non Spec 03/09/2012 Tdap (Age 7+) 09/14/2009CTIVE PROBLEM LISTGeneralized Anxiety DisorderEsophageal RefluxEczema, DyshidroticEssential Hypertension, BenignInguinal Ring LaxitySterilizationInguinal Hernia, LeftInguinal HerniaAdjustment Disorder With Mixed Anxiety and Depressed MoodHyperlipidemia Ldl Goal ANDlt;130REVIEW OF SYSTEMSGeneral: Denies fever, chills, night sweats, or changes in weight.Dermatologic: Denies any new skin conditions, rashes or changing moles.Eyes:ENT: Denies hearing loss or tinnitusRespiratory: Denies any cough, dyspnea, or wheezing.Cardiovascular: Denies any chest pain with exertion or at rest, palpitations,syncope, or edema.Gastrointestinal: Denies any nausea, vomiting, abdominal pain, heartburn,changes in bowel habit, Denies any rectal bleeding.Genitourinary: Denies Denies problems with urinary stream., Denies dysuria,frequency, urgency, incontinence, erectile dysfunction, hematuria and nocturia.Musculoskeletal: Denies any joint swelling, crepitus, joint pain, or loss ofrange of motion., Denies back pain.Neurologic: Denies any headaches, tremors, dizziness, vertigo, memory loss,confusion., Denies weakness, numbness or tingling.Psychiatric: Denies any sleeping problems, history of abuse, marital discord.,Denies any anxiety or depression.Hematologic/Lymphatic/Immunologic: Denies anemia, bruising, bleedingabnormalities.Endocrine: Denies any heat or cold intolerance, polyuria or polydipsia.OBJECTIVE:PHYSICAL EXAMINATION:BP 174/113 Pulse 70 Resp 16 Ht 177.8 cm (5' 10ANDquot;) Wt 91.2 kg (201lb) BMI 28.84 kg/o5DFVCHJM APPEARANCE Well appearing, alert, in no acute distress, well-hydrated,well nourished.SKIN: small pustule R angle of jaw.HEAD: No significant findings.EYES: Negatives conjunctivae and sclerae normal and lids and lashes normalEARS: External ears normal, canals clearNOSE/SINUSES: Nasal mucosa normalOROPHARYNX: Lips, mucosa, and tongue normal, teeth and gums normal andoropharynx normal.NECK: Supple, full range of motion, normal thyroid, no carotid bruits, no JVDand single R superior ant cervical nodeBACK: Back symmetric, Normal curvature, No CVAT.LUNGS: normal pulmonary exam and clear to auscultation and percussionHEART: Normal PMI, Regular rate and rhythm, Normal heart sounds, S1 and S2 andNo murmurs.BREASTS:ABDOMEN: Soft, Non-tender, No palpable masses and No hepatosplenomegaly.EXTREMTIES: extremities normal, no deformities, no skin discoloration, noedema, normal pulses bilaterally.NEURO: Awake, alert and oriented x 3, Reflexes symmetrical, Normal gait, Noinvoluntary motions., muscle tone normal, muscle strength normalGENITALIA: Penis normal, no urethral discharge, scrotum normal to palpation, noherniasRECTAL: Anus normal, no anorectal masses, Prostate normal size, consistency,no nodules, and no tendernessASSESSMENT:hypertension--not at goalch anxiety--well controlledreactive cervical nodePLAN:healthy diet and regular exerciseincrease lisinopril-hct 20/12.5 two by mouth every AM--nurse bp check in 2wkslabs as ordereduse ativan sparingly as needed for severe anxietyFrank CARLY Chavez website checked and validated. No controlled substance prescriptions werereported.- 06/06/2017 by CARLY Gonsales III MDFrank A Cebul, III MD 06/06/2017 9:31 AM SignedPLAN:healthy diet and regular exerciseincrease lisinopril-hct 20/12.5 two by mouth every AM--nurse bp check in 2wkslabs as orderedFrank A CARLY Jean Baptiste MDReferring Provider: SELF [200]Allergies As of Date: 06/06/2017 Noted Allergy ReactionBEES 06/06/2017 4 - HivesDate Reviewed: 06/06/2017Reviewed by: Verenice BelcherOss Health) TIMMY Mohamud - Fully AssessedReason for Visit: Physical [83]Primary Visit Diagnosis:Hyperlipidemia LDL goal <130 [E78.5] Other Visit Diagnoses:Adjustment disorder with mixed anxiety and depressed mood [F43.23] Essential hypertension, benign [I10] Generalized anxiety disorder [F41.1]Order(s):venlafaxine ER (EFFEXOR XR) 75 mg 24 hr capsuleTake 1 capsule by mouth once daily.Disp: 30 capsuleRfl: 11 lisinopril-hydrochlorothiazide (PRINZIDE,ZESTORETIC) 20-12.5 mg per tabletTake 2 tablets by mouth once daily.Disp: 60 tabletRfl: 11 LORazepam (ATIVAN) 1 mg tabletTake 0.5 tablets by mouth twice daily as needed for Anxiety for up to 30 days.Disp: 20 tabletRfl: 0 COMP METABOLIC PANEL [SQCMP] Order #: [id number] FUTURE LIPID PANEL BASIC [SQLIPB] Order #: [id number] FUTUREPrescriptions as of 06/06/2017 Sig: VENLAFAXINE ER 75 MG CAPSULE,* Take 1 capsule by mouth once * LISINOPRIL 20 MG-HYDROCHLOROT* Take 2 tablets by mouth once * LORAZEPAM 1 MG TABLET Take 0.5 tablets by mouth twi* * MULTIVITAMIN ORAL Take 1 tablet by mouth once d*Problem List As Of Date 06/06/2017 Noted Resolved GENERALIZED ANXIETY DIS [F41.1] INVALID FOR* ESOPHAGEAL REFLUX [K21.9] INVALID FOR* Eczema, Dyshidrotic [L30.1] INVALID FOR* Essential Hypertension, Benign [I10] INVALID FOR* Inguinal ring laxity [K40.90] INVALID FOR*06/06/2017 Inguinal hernia, left [K40.90] INVALID FOR* Inguinal hernia [K40.90] INVALID FOR*06/06/2017 Adjustment disorder with mixed anxiety and depr*INVALID FOR* Hyperlipidemia LDL goal <130 [E78.5] INVALID FOR* Other instructions from your clinician: PLAN: healthy diet and regular exercise increase lisinopril-hct 20/12.5 two by mouth every AM--nurse bp check in 2 wks labs as ordered Ronald Jean Baptiste III MDPrescriptions ordered this encounter Disp Refills Start End VENLAFAXINE ER 75 MG CAPSULE,EXTENDE* 30 c* 11 06/06/2017 Route: ORAL Sig: Take 1 capsule by mouth once daily. LISINOPRIL 20 MG-HYDROCHLOROTHIAZIDE* 60 t* 11 06/06/2017 Route: ORAL Sig: Take 2 tablets by mouth once daily. LORAZEPAM 1 MG TABLET 20 t* 0 06/06/2017 07/06/2017 Class: Print RX Route: ORAL Sig: Take 0.5 tablets by mouth twice daily as needed for Anxiety for up to 30 days.Medications Discontinued During This Encounter venlafaxine ER (EFFEXOR XR) 75 mg 24* 30 c* 11 05/17/2016 06/06/2017 Route: ORAL Sig: Take 1 capsule by mouth once daily. Disc: Reason for discontinue is not on file. lisinopril-hydrochlorothiazide (PRIN* 30 t* 11 05/14/2016 06/06/2017 Route: ORAL Sig: Take 1 tablet by mouth once daily. Disc: Reason for discontinue is not on file. LORazepam (ATIVAN) 1 mg tablet 30 t* 0 05/14/2016 06/06/2017 Class: Print RX Route: ORAL Sig: Take 0.5 tablets by mouth twice daily as needed for Anxiety. Disc: Reason for discontinue is not on file. Status:Closed by RONALD JEAN BAPTISTE III, MD on 06/06/17 CNPTOUTREACH Observed: 05/20/2017 Status: COMPLETED Source: [place] 12:00 AM [facility] REPOSITORY Patient Outreach (INT[facility]) VINH YAÑEZ JR ([id number]) 1970 MDate Time Provider Department05/20/17 RONALD JEAN BAPTISTE III [facility] During your visit today, we recorded the following information about you:Allergies As of Date: 05/20/2017 Noted Allergy ReactionNO KNOWN DRUG ALLERGIES 12/10/2005Date Reviewed: 05/14/2016Reviewed by: Jaye Noel Ma - Fully AssessedVisit Diagnosis:Medication management [Z79.899]Order(s):BASIC METABOLIC PNL [SQBMP] Order #: [id number] FUTURE HGB A1C [SAHXN4S] Order #: [id number] FUTURE LIPID PANEL BASIC [SQLIPB] Order #: [id number] FUTUREPrescriptions as of 05/20/2017 Sig:X VENLAFAXINE ER 75 MG CAPSULE,* Take 1 capsule by mouth once *X LORAZEPAM 1 MG TABLET Take 0.5 tablets by mouth twi*X LISINOPRIL 20 MG-HYDROCHLOROT* Take 1 tablet by mouth once d* * MULTIVITAMIN ORAL Take 1 tablet by mouth once d*Problem List As Of Date 05/20/2017 Noted Resolved GENERALIZED ANXIETY DIS [F41.1] INVALID FOR* ESOPHAGEAL REFLUX [K21.9] INVALID FOR* Eczema, Dyshidrotic [L30.1] INVALID FOR* Essential Hypertension, Benign [I10] INVALID FOR* Inguinal Ring Laxity [K40.90] INVALID FOR* Sterilization [Z30.2] INVALID FOR* Inguinal hernia, left [K40.90] INVALID FOR* Inguinal hernia [K40.90] INVALID FOR* Adjustment disorder with mixed anxiety and depr*INVALID FOR* Hyperlipidemia LDL goal <130 [E78.5] INVALID FOR* Status:Closed by [employer], PRODUSER on 12/19/17 ALLERGIES ALLERGIES DATE TYPE / CODE NAME / CODE REACTION SEVERITY SOURCE 06/06/2017 Environ/420 BEES HIVES [facility] [id number](SNOM [place] [facility]) Repository 12/10/2005 Drug NO KNOWN DRUG [facility] Class/78504 ALLERGIES [place] 1003(SNOMED Repository CT) ENCOUNTERS ENCOUNTERS ADMIT/DISCHARGE ACCOUNT ADMITTING ENCOUNTER LOCATION SOURCE NUMBER CLASS 12/29/2017 [id number] Ambulatory [facility] ing:LAB Repository 12/18/2017/10/11 [id number] Ambulatory [address] [place] Repository 12/01/2017/12/02/19 [id number] Ambulatory [address] [place] Repository 12/01/2017/12/03/19 [id number] Ambulatory [address] [place] Repository 11/29/2017/11/30/19 [id number] Ambulatory [address] [place] Repository 08/19/2017 [id number] Ambulatory [facility] Repository 08/19/2017/08/20/19 [id number] Ambulatory [address] [place] Repository 08/19/2017/08/22/19 [id number] Ambulatory [address] Repository 06/21/2017/06/24/19 [id number] Ambulatory [address] Repository 06/06/2017/06/07/19 [id number] Ambulatory [address] Repository 06/06/2017/06/10/19 [id number] Ambulatory [address] Repository PAYERS PAYERS ENCOUNTER GUARANTOR PAYER SUBSCRIBER SOURCE 12/29/2017 [facility] [place] Primary VINH MAKINGER Insurance:[facility] [facility] Number: Jr.: [place], [place] [id number] Repository [address]Uvv: [phone]) Date:[phone] ( [address], [place] [address]WH: 12/29/2017 Secondary NOT GIVENUNK Swati Insurance:SELF PAY [facility] Number: Effective Repository Date:2017-12-25
== END ==
PROVIDERS: Family Provider Family Medicine; PCP Family Medicine; Referring Provider Otolaryngology; Visit Provider Otolaryngology
DX: K11.8 Other diseases of salivary glands (principal)
CPT/HCPCS: 10021; 88161; 88305

== ENCOUNTER 2018-11-09 20:09 | Emergency (ER) | payer OTHER, SELFPAY ==
[2018-11-09 20:10] VITALS: BP 88/64; PULSE 103; RESP 20; TEMP 36.4; O2SAT 97; BMI 28.5
[2018-11-09 20:20] VITALS: BP 121/69; PULSE 94; RESP 20; O2SAT 96
[2018-11-09] MEDS: 0.9% Normal Saline 1,000 ML 1000 ML IV (20:27)
[2018-11-09] MEDS: MethylPREDNISolone 125 MG/2 ML Vial IV (20:32)
--- NOTE | 2018-11-09 20:51 | ED.VIS.GEN ---
History of Present Illness Chief Complaint: Allergic Reaction Informant: Patient, Family, Significant Other Onset: Today Context: Sudden Onset Timing: Continuous Quality: Lightheadedness, rash, and lump in throat after bee sting Location: Left ear Current Severity: Moderate Maximum Severity: Severe Worsened by: Bee sting Relieved by: Improved after administration of daughter's EpiPen 0.3 mg Associated Symptoms: Read narrative Narrative: Patient is a middle-age male who presents after bee sting to the left ear. He administered his daughter's EpiPen left thigh. Based on his description he administered the medication properly. The EpiPen was not a Juan Antonio EpiPen since his daughter is a teenager. It was full strength. Patient states his lips did feel swollen. They no longer feel swollen. He states he had a lump in his throat and developed a rash. He also reported lightheadedness. Triage blood pressure was 86 systolic. He denied shortness of breath. He denied chest discomfort. He denied nausea or vomiting. states 2 weeks ago he was stung by a bee and the anterior part of his neck swelled. He had no other associated symptoms. Prior similar symptoms: No Recent Illness/Hospitalization: No - Past Medical History (1) Depression Status: Chronic (2) Hypertension Status: Chronic Past Medical History - Allergies and Home Meds Allergies/Adverse Reactions: Allergies bee venom protein (honey bee) Allergy (Verified 11/09/18 20:11) Anaphylaxis Primary Care Physician: Ronald Jean Baptiste III, MD [Primary Care Provider] - As Needed Prior records reviewed: Yes Surgical History: noncontributory, - - Inguinal hernia repair, vasectomy. Lives: Spouse/ Significant Other, With Family Smoking Status: Never smoker Alcohol: None Drugs: None - Family History Maternal Family History: Reports: No pertinent history Paternal Family History: Reports: Hypertension Review of Systems General: Denies: Chills, Fever Eyes: Denies: Visual changes - bilaterally, Blurred Vision - bilaterally ENT: Reports: Left ear pain - And swelling secondary to hymenoptera envenomation, Sore throat - Swelling of throat. Denies: Rhinorrhea Cardiovascular: Denies: Chest pain, Palpitations Respiratory: Denies: Dyspnea, Cough, Dyspnea on exertion Gastrointestinal: Denies: Abdominal pain, Nausea, Vomiting, Diarrhea, Melena, Hematochezia Musculoskeletal: Denies: Back pain, Extremity Pain Skin: Reports: Rash. Denies: Abrasions, Wounds Neurological: Reports: Weakness - Lightheadedness Endocrine: Denies: Polyuria, Polydipsia Hematologic: Denies: Easy bruising, Easy bleeding Allergy: Reports: Uticaria, Swelling of the mouth - And tongue Physical Exam Vital Signs/Narrative: Vital Signs Temp Pulse Resp BP Pulse Ox 11/09/18 20:20 94 20 H 121/69 H 96 11/09/18 20:10 97.6 F L 103 H 20 H 88/64 L 97 Inital Vital Signs reviewed: Yes - Initial blood pressure was low at 88/64. He was tachycardic. General: Well nourished, Well developed, No Acute Distress Head: Normocephalic, Atraumatic Eyes: Perrl, EOMI ENT: Moist mucous membranes, No rhinorrhea, - - There is no evidence of angioedema. Neck: Supple, Nontender, No lymphadenopathy, No JVD, - - Trachea is midline. There is no stridor. Cardiovascular: Regular rate, Regular rhythm, No murmurs, Normal S1, Normal S2 Respiratory: No distress, CTA bilaterally, Chest nontender Abdomen: Soft, Nontender, Nondistended, Normal bowel sounds Rectal: Deferred Back: Nontender, Normal Inspection Extremities: Nontender, No edema Skin: Normal color, Rash - Consistent with urticaria Neurological: Alert, Oriented x3, Cranial nerves II-XII grossly intact, Normal Strength, Normal Sensation Psychological: Normal affect, Normal Mood Diagnostic/Tx/Re-eval - Medical Decision Making Since patient is hypotensive 1 L normal saline was ordered. Because he has history of BPH and decrease in urinary stream he did not receive Benadryl because of concerns of urinary retention secondary to anticholinergic effect. He was treated with Solu-Medrol and Pepcid IV push. Patient has anaphylactic shock secondary to hymenoptera envenomation. He was reassessed at 0845. His rash proximal upper and lower extremity is worse. Distal upper and lower extremity is improved. Blood pressure has improved. If his symptoms continue to worsen when reevaluated at 2100 will administer additional dose of epinephrine and patient will require admission to the hospital. Mr. Boyle was reassessed at 2145. His rash has improved a minimum of 50%. Will reassess again at 2230. Most recent systolic blood pressure is 132. Patient rash has improved significantly. His blood pressure is stable. He has no cardiac respiratory findings or symptoms. He was discharged with prescription for epinephrine, prednisone burst and H2 britni. - Critical Care Time Critical care time (excluding procedures): 30-74 minutes - Critical care time 32 minutes, Discussing w/Patient &/or Family/Academic Support Assistant, Performing Direct Patient Care at Bedside, - - Treatment of anaphylactic shock IV fluids, epinephrine etc. ED Disposition - Plan for ED Patient: Disposition: Home or Assisted Living Diagnosis: Anaphylactic shock due to sting Instructions: ALLERGIC REACTION, Insect (General) Prescriptions: Prednisone [Deltasone] 40 mg PO DAILY #10 tab Prescription Printed Epi Pen (for allergic rxn) 0.3 mg IM X1 #1 syringe Prescription Printed Famotidine [Pepcid] 20 mg PO BID #10 tab Prescription Printed Referrals: Ronald Jean Baptiste III, MD [Primary Care Provider] - As Needed
[2018-11-09 23:30] VITALS: BP 151/98; PULSE 72; RESP 15; O2SAT 96
[2018-11-09 23:38] VITALS: BP 151/90; PULSE 92; RESP 16; O2SAT 96
== END 2018-11-09 23:38 | disposition home or self-care (01) ==
PROVIDERS: Emergency Provider Emergency Medicine; Family Provider Family Medicine; PCP Family Medicine
DX: T63.441A Toxic effect of venom of bees, accidental (unintentional), initial encounter (principal); T78.2XXA Anaphylactic shock, unspecified, initial encounter; I10 Essential (primary) hypertension
CPT/HCPCS: 96361; 96374; 99283; J7030; J3490